=== PATIENT | female | born 1995 | race Caucasian/White ===

== ENCOUNTER 2017-07-01 08:00 | Outpatient (CLI) | payer MEDICAID ==
[2017-07-01 18:28] LABS: BILIRUBIN,URINE NEGATIVE (NEGATIVE)
[2017-07-01 18:30] LABS: UA w/ MICROSCOPIC CHARGE YES
[2017-07-01 18:38] LABS: UR CULTURE IF IND NOT INDICATED; WBC,URINE >25 /HPF (0-5)
== END 2017-07-01 08:01 | disposition home or self-care (01) ==
LOC: LAB.R 08:00
PROVIDERS: ATTEND Nurse Practitioner Family
DX: N39.0 Urinary tract infection, site not specified (principal)
CPT/HCPCS: 81001; 81003; 87086

== ENCOUNTER 2017-08-04 01:22 | Emergency (ER) | payer MEDICAID ==
[2017-08-04 01:46] LABS: BILIRUBIN,URINE NEGATIVE (NEGATIVE)
[2017-08-04 01:47] LABS: UA w/ MICROSCOPIC CHARGE YES
[2017-08-04 01:49] LABS: BASOPHILS % (AUTO) 0.5 %; EOSINOPHILS # (AUTO) 0.4 10^3/uL (0.0-0.7); EOSINOPHILS % (AUTO) 3.9 %; HCT - HEMATOCRIT 40.4 % (37.0-47.0); HGB - HEMOGLOBIN 14.1 g/dL (12.0-16.0); LYMPHOCYTES # (AUTO) 2.9 10^3/uL (1.5-3.5); LYMPHOCYTES % (AUTO) 28.2 %; MEAN CORPUSCULAR HEMOGLOBIN 31.2 pg (27.0-31.0); MEAN CORPUSCULAR HGB CONC 35.1 g/dL (32.0-36.0); MEAN PLATELET VOLUME 7.6 fL (7.9-10.8); MONOCYTES # (AUTO) 0.8 10^3/uL (0.0-1.0); MONOCYTES % (AUTO) 7.7 %; NEUTROPHILS # (AUTO) 6.2 10^3/uL (1.5-6.6); NEUTROPHILS % (AUTO) 59.7 %; RED BLOOD COUNT 4.53 10^6/uL (4.20-5.40); UNCORRECTED WHITE BLOOD COUNT 10.4 x10^3/uL; WHITE BLOOD COUNT 10.4 x10^3/uL (4.8-10.8)
--- NOTE | 2017-08-04 01:50 | ED Physician Documentation ---
PD HPI ABD PAIN - Stated complaint Stated Complaint: ABDOMINAL PAIN,VOMITING - Chief complaint Chief Complaint: Abd Pain - History obtained from History obtained from: Patient - History of Present Illness Timing - onset: How many hours ago (5) Timing - details: Still present Quality: Pain Location: RUQ, Epigastric Worsened by: Eating Associated symptoms: Nausea, Vomiting. No: Fever, Diarrhea, Dysuria - Additional information Additional information: The patient is a 22-year-old female who presents with epigastric/right upper quadrant abdominal pain radiating to her back. Her pain started gradually about 5 hours prior to arrival, and has become progressively worse. It is worse with eating. She most recently ate prime rib and potatoes. She has had associated nausea with vomiting 2. She denies fever, diarrhea, or dysuria. She denies chest pain, cough, or shortness of breath. She reports history of peptic ulcer disease that was diagnosed 2 years ago and was treated with omeprazole. She was seen here about 1 year ago with similar symptoms, and no definitive diagnosis was made at that time. Review of Systems Constitutional: denies: Fever Nose: denies: Congestion Throat: denies: Sore throat Cardiac: denies: Chest pain / pressure Respiratory: denies: Dyspnea, Cough GI: reports: Abdominal Pain, Nausea, Vomiting. 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 : None HEENT: None Psych: Anxiety, Bipolar disorder Musculoskeletal: None Derm: None - Past Surgical History Past Surgical History: No - Present Medications Home Medications: Ambulatory Orders Medication Instructions Recorded Confirmed Duloxetine HCl [Cymbalta] 120 mg PO DAILY 03/01/16 08/04/17 Ferrous Sulfate 325 mg PO DAILY #20 tablet 06/12/16 08/04/17 Topiramate [Topamax] 50 mg PO BID 06/12/16 08/04/17 HYDROcod/ACETAM 5/325 [Vicodin 1 - 2 ea PO Q6H PRN #20 tablet 08/04/17 5/325] Promethazine [Phenergan] 25 - 50 mg PO Q6H PRN #10 tab 08/04/17 - Allergies Allergies/Adverse Reactions: Allergies Allergy/AdvReac Type Severity Reaction Status Date / Time Penicillins Allergy Unknown Verified 06/12/16 17:43 NSAIDS (Non-Steroidal AdvReac Unknown Verified 06/12/16 17:46 Anti-Inflamma - Social History Does the pt smoke?: No Smoking Status: Never smoker Does the pt drink ETOH?: No Does the pt have substance abuse?: No - Immunizations Immunizations are current?: Yes - POLST Patient has POLST: No POLST Status: Full Code PD ED PE NORMAL - Vitals Vital signs reviewed: Yes (normal) - General General: Alert and oriented X 3, Well developed/nourished, Other (Overweight) - HEENT HEENT: Atraumatic, Moist mucous membranes, Pharynx benign - Neck Neck: Supple, no meningeal sign, No adenopathy, No JVD - Cardiac Cardiac: RRR, No murmur - Respiratory Respiratory: No respiratory distress, Clear bilaterally - Abdomen Abdomen: Normal bowel sounds, Soft, No organomegaly, Other (Tender to palpation in the right upper quadrant, with positive Encinas sign. Less tender in the epigastric region.) - Back Back: No CVA TTP - Derm Derm: No rash - Extremities Extremities: No edema, No calf tenderness / cord - Neuro Neuro: Alert and oriented X 3, No motor deficit, Normal speech Results - Vitals Vitals: Vital Signs - 24 hr 08/04/17 08/04/17 08/04/17 01:27 03:25 04:05 Temperature 36 C L 36.4 C L 36.9 C Heart Rate 73 71 80 Respiratory 18 18 15 Rate Blood Pressure 123/69 110/62 121/68 O2 Saturation 100 100 99 Oxygen O2 Source Room air - Labs Labs: Laboratory Tests 08/04/17 08/04/17 08/04/17 01:35 01:45 01:45 WBC 10.4 RBC 4.53 Hgb 14.1 Hct 40.4 MCV 89.0 MCH 31.2 H MCHC 35.1 RDW 13.0 Plt Count 192 MPV 7.6 L Neut # 6.2 Lymph # 2.9 [place] # 0.8 Eos # 0.4 Baso # 0.0 Absolute Nucleated RBC 0.01 Nucleated RBC % 0.0 Sodium 137 Potassium 4.0 Chloride 102 Carbon Dioxide 26 Anion Gap 9.0 BUN 15 Creatinine 0.6 Estimated GFR (MDRD) 123 Glucose 113 H Calcium 9.4 Total Bilirubin 0.3 AST 15 ALT 18 Alkaline Phosphatase 55 Total Protein 7.1 Albumin 4.3 Globulin 2.8 Albumin/Globulin Ratio 1.5 Lipase 25 Urine Color YELLOW Urine Clarity HAZY Urine pH 7.0 Ur Specific [place] 1.020 Urine Protein NEGATIVE Urine Glucose (UA) NEGATIVE Urine Ketones NEGATIVE Urine Occult Blood NEGATIVE Urine Nitrite NEGATIVE Urine Bilirubin NEGATIVE Urine Urobilinogen 0.2 (NORMAL) Ur Leukocyte Esterase NEGATIVE Urine RBC None Seen Urine WBC 0-3 Ur Squamous Epith Cells MANY Squamous H Urine Bacteria None Seen Ur Microscopic Review INDICATED - Rads (name of study) RUQ U/S Radiology: Prelim report reviewed, EMP read contemporaneously, See rad report ( Stones and sludge in the gallbladder with borderline wall thickening and positive sonographic Encinas sign. There may be cholecystitis. No biliary dilatation seen.) PD MEDICAL DECISION MAKING - ED course Complexity details: reviewed old records, reviewed results, re-evaluated patient , considered differential, d/w patient ED course: The patient's presentation is most consistent with biliary colic. Right upper quadrant ultrasound reveals cholelithiasis. CBC and chemistry panel are unremarkable. Her presentation does not suggest pancreatitis, and I doubt acute gastritis. Treatment in the emergency department included administration of normal saline 1 L IV, ketorolac 30 mg IV, ondansetron 4 mg IV, and hydromorphone 1 mg IV 2. The patient's symptoms completely resolved with the above treatment. On repeat examination her abdomen is benign. I discussed with her the diagnosis, potentially exacerbating factors, outpatient follow-up, including referral to general surgery, as well as potentially worrisome signs or symptoms that should prompt reevaluation in the emergency department. She is being discharged with prescriptions for Phenergan and for Vicodin, 20 tablets. Departure - Departure Disposition: 01 Home, Self Care Clinical Impression: Biliary colic Condition: Stable Instructions: ED Gallstone W Biliary Colic Follow-Up: Samina Hyatt ARNP [Primary Care Provider] - [facility] [Provider Group] Prescriptions: HYDROcod/ACETAM 5/325 [Vicodin 5/325] 1 - 2 ea PO Q6H PRN #20 tablet PRN Reason: Pain Promethazine [Phenergan] 25 - 50 mg PO Q6H PRN #10 tab PRN Reason: Nausea / Vomiting Comments: Avoid eating greasy or fatty foods, such as meat, cheeses, or pizza. You can use Vicodin as prescribed he needed for pain. You can use Phenergan as prescribed if needed for nausea. Follow-up with general surgery. Call for next available appointment. Return to the emergency department if you develop increasing abdominal pain, persistent vomiting, fever, or otherwise worsening symptoms. Discharge Date/Time: 08/04/17 04:05
[2017-08-04] MEDS: KETOROLAC 60 MG/2 ML VIAL IVP STA (01:55)
[2017-08-04] MEDS: ONDANSETRON 4 MG/2 ML VIAL IVP STA (01:56)
[2017-08-04] MEDS: SODIUM CHLORIDE 0.9% 1,000 ML IV ONE (01:56)
[2017-08-04 01:57] LABS: WBC,URINE 0-3 /HPF (0-5)
[2017-08-04] MEDS: HYDROmorphone 0.5 MG/0.5 ML SYRINGE IVP SCH (01:57)
[2017-08-04] MEDS ORDERED: HYDROmorphone 1 MG/ML SYRINGE ONE ×2 (01:57→03:45)
[2017-08-04] MEDS ORDERED: KETOROLAC 30 MG/ML VIAL ONE (01:58)
[2017-08-04] MEDS ORDERED: ONDANSETRON 4 MG/2 ML VIAL ONE (01:58)
[2017-08-04] MEDS ORDERED: SODIUM CHLORIDE FLUSH 0.9% 10 ML SYRINGE IVP ONE (01:58)
[2017-08-04 02:01] LABS: ALBUMIN/GLOBULIN RATIO 1.5 (1.0-2.2); BILIRUBIN,TOTAL 0.3 mg/dL (0.2-1.0); CALCIUM 9.4 mg/dL (8.5-10.3); CREATININE 0.6 mg/dL (0.4-1.0); TOTAL PROTEIN 7.1 g/dL (6.7-8.2)
--- NOTE | 2017-08-04 02:52 | Ultrasound Preliminary Report ---
Exam: US ABDOMEN LIMITED IMPRESSION: 1. Stones and sludge in the gallbladder with borderline wall thickening and positive sonographic Murp hy sign. There may be cholecystitis. 2. No biliary dilatation seen. [facility] SITE ID: [id number]
--- NOTE | 2017-08-04 02:55 | Ultrasound Report ---
EXAM: ABDOMEN ULTRASOUND LIMITED, RUQ EXAM DATE: 08/04/2017 02:33 AM. CLINICAL HISTORY: Right upper quadrant pain. COMPARISON: None. TECHNIQUE: Real-time scanning was performed with static images obtained. FINDINGS: Liver: No focal lesion identified. 16.5 cm. Main portal vein flow: Hepatopetal. Gallbladder: Sludge in the gallbladder. Small mobile stones. Borderline wall thickening at 3.2 mm. Fo zara tenderness over the gallbladder. Biliary System: CBD measures 4 mm. No intrahepatic or extrahepatic ductal dilatation. Other: Right kidney measures 11.3 cm and appears normal. Visualized portions of the pancreas appear n ormal. IMPRESSION: 1. Stones and sludge in the gallbladder with borderline wall thickening and positive sonographic Murp hy sign. There may be cholecystitis. 2. No biliary dilatation seen. [facility] Referring Provider Line: [phone] SITE ID: [id number]
[2017-08-04] MEDS: HYDROmorphone 0.5 MG/0.5 ML SYRINGE IVP ONE (03:43)
[2017-08-04 04:08] VITALS: BP 121/68
== END 2017-08-04 04:05 | disposition home or self-care (01) ==
LOC: ED 01:22
DX: K80.50 Calculus of bile duct without cholangitis or cholecystitis without obstruction (principal)
CPT/HCPCS: 36415; 76705; 80053; 81001; 81003; 83690; 85025; 96361; 96374; 96375; 96376; 99283; 99284

== ENCOUNTER 2018-03-14 18:11 | Emergency (ER) | payer MEDICAID ==
[2018-03-14 18:39] LABS: BASOPHILS % (AUTO) 0.3 %; EOSINOPHILS # (AUTO) 0.1 10^3/uL (0.0-0.7); EOSINOPHILS % (AUTO) 0.9 %; HGB - HEMOGLOBIN 14.3 g/dL (12.0-16.0); LYMPHOCYTES # (AUTO) 1.3 10^3/uL (1.5-3.5); LYMPHOCYTES % (AUTO) 15.8 %; MEAN CORPUSCULAR HEMOGLOBIN 30.9 pg (27.0-31.0); MEAN CORPUSCULAR HGB CONC 35.5 g/dL (32.0-36.0); MEAN PLATELET VOLUME 7.5 fL (7.9-10.8); MONOCYTES # (AUTO) 0.9 10^3/uL (0.0-1.0); MONOCYTES % (AUTO) 11.7 %; NEUTROPHILS # (AUTO) 5.8 10^3/uL (1.5-6.6); NEUTROPHILS % (AUTO) 71.3 %; PLT - PLATELET COUNT 209 10^3/uL (130-450); RED BLOOD COUNT 4.62 10^6/uL (4.20-5.40); RED CELL DISTRIBUTION WIDTH 12.3 % (12.0-15.0); WHITE BLOOD COUNT 8.1 x10^3/uL (4.8-10.8)
[2018-03-14 18:41] LABS: BILIRUBIN,URINE NEGATIVE (NEGATIVE); GLUCOSE, URINE (UA) NEGATIVE (NEGATIVE); KETONES,URINE (UA) NEGATIVE (NEGATIVE); LEUKOCYTE ESTERASE, URINE NEGATIVE (NEGATIVE); NITRITE,URINE NEGATIVE (NEGATIVE); OCCULT BLOOD,URINE NEGATIVE (NEGATIVE); PROTEIN,URINE NEGATIVE (NEGATIVE); UROBILINOGEN,URINE 0.2 (NORMAL) E.U./dL (NORMAL)
[2018-03-14 18:46] LABS: CLARITY,URINE CLEAR (CLEAR); HCG UR QUAL NEGATIVE
[2018-03-14 18:54] LABS: ALBUMIN 3.7 g/dL (3.2-5.5); ALBUMIN/GLOBULIN RATIO 1.1 (1.0-2.2); BILIRUBIN,TOTAL 0.4 mg/dL (0.2-1.0); CALCIUM 9.5 mg/dL (8.5-10.3); CREATININE 0.6 mg/dL (0.4-1.0); TOTAL PROTEIN 7.1 g/dL (6.7-8.2)
[2018-03-14] MEDS ORDERED: MORPHINE 10 MG/ML VIAL IVP STA (19:41)
[2018-03-14] MEDS ORDERED: ONDANSETRON 4 MG/2 ML VIAL IVP STA (19:44)
[2018-03-14] MEDS ORDERED: SODIUM CHLORIDE 0.9% 1,000 ML IV ONE (19:44)
--- NOTE | 2018-03-14 19:47 | ED Physician Documentation ---
PD HPI ABD PAIN - Stated complaint Stated Complaint: FEVER/V/D - Chief complaint Chief Complaint: Abd Pain - History obtained from History obtained from: Patient, Family (mother) - History of Present Illness Timing - onset: How many days ago (4) Timing - duration: Days (4) Timing - details: Gradual onset Quality: Cramping, Aching, Pain Location: All over / everywhere Improved by: Laying still Worsened by: Eating Associated symptoms: Fever (102.5), Nausea, Vomiting, Diarrhea. No: Melena, Hematochezia, Dysuria, Hematuria Recently seen: Not recently seen - Additional information Additional information: states diarrhea and fever x 4 days. + cramping. constant pain. States started vomiting today. States diarrhea is approx q15 mins. Review of Systems Constitutional: reports: Fever. 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 HEENT: None Psych: Anxiety, Bipolar disorder Musculoskeletal: None Derm: None - Past Surgical History Past Surgical History: Yes General: Cholecystectomy - Present Medications Home Medications: Ambulatory Orders Medication Instructions Recorded Confirmed Duloxetine HCl [Cymbalta] 120 mg PO DAILY 03/01/16 08/14/17 Ferrous Sulfate 325 mg PO DAILY #20 tablet 06/12/16 08/14/17 Topiramate [Topamax] 50 mg PO BID 06/12/16 08/14/17 Omeprazole [PriLOSEC] 20 mg PO QDAC 08/12/17 08/14/17 Acetaminophen 1,000 mg PO Q6H PRN #30 tablet 08/13/17 08/14/17 Promethazine [Phenergan] 25 - 50 mg PO Q6H PRN 08/15/17 08/15/17 SUMAtriptan [Imitrex] 25 mg PO DAILY PRN 08/15/17 08/15/17 oxyCODONE [Roxicodone] 5 - 10 mg PO Q6H PRN #15 tablet 08/15/17 Ciprofloxacin HCl [Cipro] 500 mg PO BID #20 tablet 03/14/18 Hydrocodone/Acetaminophen 1 - 2 each PO Q6H PRN #14 tablet 03/14/18 [Hydrocodon-Acetaminophen 5-325] Hyoscyamine Sulfate [Levsin-Sl] 0.125 mg SL Q4H PRN #20 tab.subl 03/14/18 Metronidazole [Flagyl] 500 mg PO BID #20 tablet 03/14/18 Promethazine [Phenergan] 25 mg PO Q6H PRN #10 tab 03/14/18 - Allergies Allergies/Adverse Reactions: Allergies Allergy/AdvReac Type Severity Reaction Status Date / Time Penicillins Allergy Unknown Unknown Verified 08/14/17 14:56 NSAIDS (Non-Steroidal AdvReac Mild Cramps Verified 08/14/17 14:56 Anti-Inflamma - Social History Does the pt smoke?: No Smoking Status: Never smoker Does the pt drink ETOH?: No Does the pt have substance abuse?: No - Immunizations Immunizations are current?: Yes - POLST Patient has POLST: No POLST Status: Full Code PD ED PE NORMAL - Vitals Vital signs reviewed: Yes - General General: Alert and oriented X 3, No acute distress - HEENT HEENT: Moist mucous membranes - Neck Neck: Supple, no meningeal sign - Cardiac Cardiac: RRR, Strong equal pulses - Respiratory Respiratory: No respiratory distress, Clear bilaterally - Abdomen Abdomen: Soft, Non tender, Non distended - Back Back: No spinal TTP - Derm Derm: Warm and dry - Neuro Neuro: Alert and oriented X 3 - Psych Psych: Normal mood, Normal affect Results - Vitals Vitals: Vital Signs - 24 hr 03/14/18 03/14/18 03/14/18 18:18 19:53 20:08 Temperature 36.9 C Heart Rate 92 79 86 Respiratory 18 15 16 Rate Blood Pressure 113/70 114/67 113/72 O2 Saturation 100 100 100 03/14/18 03/14/18 21:28 22:25 Temperature 36.9 C Heart Rate 83 83 Respiratory 16 16 Rate Blood Pressure 119/72 112/76 O2 Saturation 100 100 Oxygen O2 Source Room air - Labs Labs: Microbiology 03/14/18 20:17 Clostridium difficile (PCR) - Final Stool 03/14/18 20:17 Campylobacter Antigen Assay - Final Stool Laboratory Tests 03/14/18 03/14/18 03/14/18 18:30 18:30 18:30 WBC 8.1 RBC 4.62 Hgb 14.3 Hct 40.2 MCV 87.0 MCH 30.9 MCHC 35.5 RDW 12.3 Plt Count 209 MPV 7.5 L Neut # 5.8 Lymph # 1.3 L [place] # 0.9 Eos # 0.1 Baso # 0.0 Absolute Nucleated RBC 0.02 Nucleated RBC % 0.2 Sodium 132 L Potassium 2.8 L Chloride 97 L Carbon Dioxide 26 Anion Gap 9.0 BUN 11 Creatinine 0.6 Estimated GFR (MDRD) 123 Glucose 93 Calcium 9.5 Total Bilirubin 0.4 AST 22 ALT 20 Alkaline Phosphatase 66 Total Protein 7.1 Albumin 3.7 Globulin 3.4 Albumin/Globulin Ratio 1.1 Lipase 18 L Urine Color YELLOW Urine Clarity CLEAR Urine pH 6.0 Ur Specific [place] <=1.005 Urine Protein NEGATIVE Urine Glucose (UA) NEGATIVE Urine Ketones NEGATIVE Urine Occult Blood NEGATIVE Urine Nitrite NEGATIVE Urine Bilirubin NEGATIVE Urine Urobilinogen 0.2 (NORMAL) Ur Leukocyte Esterase NEGATIVE Ur Microscopic Review NOT INDICATED Urine Culture Comments NOT INDICATED Urine HCG, Qual 03/14/18 18:30 WBC RBC Hgb Hct MCV MCH MCHC RDW Plt Count MPV Neut # Lymph # [place] # Eos # Baso # Absolute Nucleated RBC Nucleated RBC % Sodium Potassium Chloride Carbon Dioxide Anion Gap BUN Creatinine Estimated GFR (MDRD) Glucose Calcium Total Bilirubin AST ALT Alkaline Phosphatase Total Protein Albumin Globulin Albumin/Globulin Ratio Lipase Urine Color Urine Clarity Urine pH Ur Specific [place] <=1.005 Urine Protein Urine Glucose (UA) Urine Ketones Urine Occult Blood Urine Nitrite Urine Bilirubin Urine Urobilinogen Ur Leukocyte Esterase Ur Microscopic Review Urine Culture Comments Urine HCG, Qual NEGATIVE - Rads (name of study) CT abd/pelvis Radiology: Prelim report reviewed, EMP read contemporaneously, See rad report ( Mild colitis involving the descending and sigmoid colon. No associated abscess , obstruction or perforation.) PD MEDICAL DECISION MAKING - ED course Complexity details: reviewed results, re-evaluated patient, considered differential, d/w patient ED course: Patient is a 22-year-old female who presents to the emergency department with colitis. No evidence of ischemic colitis. Does not have a history of Crohn's or ulcerative colitis. We will trial her on antibiotics and see how she progresses. Pain well controlled. She is well-appearing, nontoxic. If she fails to improve, would consider adding steroids to see if this improves her symptoms. Patient will follow-up closely with her PCP for further care. Patient and family counseled regarding signs and symptoms for which I believe and urgent re-evaluation would be necessary. Patient with good understanding of and agreement to plan and is comfortable going home at this time This document was made in part using voice recognition software. While efforts are made to proofread this document, sound alike and grammatical errors may occur. Departure - Departure Disposition: 01 Home, Self Care Clinical Impression: Colitis Condition: Good Instructions: ED Gastroenteritis Bacterial Follow-Up: Samina Hyatt ARNP [Primary Care Provider] - Within 1 week Prescriptions: Ciprofloxacin HCl [Cipro] 500 mg PO BID #20 tablet Hydrocodone/Acetaminophen [Hydrocodon-Acetaminophen 5-325] 1 - 2 each PO Q6H PRN #14 tablet PRN Reason: pain Hyoscyamine Sulfate [Levsin-Sl] 0.125 mg SL Q4H PRN #20 tab.subl PRN Reason: Abdominal Pain Metronidazole [Flagyl] 500 mg PO BID #20 tablet Promethazine [Phenergan] 25 mg PO Q6H PRN #10 tab PRN Reason: Nausea / Vomiting Comments: Drink plenty of fluids and rest. Return if you worsen. Take all antibiotics until gone. Do not drink alcohol or drive while on narcotic pain medicine. Note that many narcotic pain relievers also contain tylenol/acetaminophen. Please ensure that your total dose of acetaminophen from all sources does not exceed 3 grams (3000mg) per day. You may constipated on this medication, take a stool softener such as "Colace" twice a day while you are on it. Also recommend a [id number] laxative such as senna or MiraLAX any day that you do not have a bowel movement. If you received narcotic pain medication in the emergency department, do not drive or operate machinery for the next 24 hours. Discharge Date/Time: 03/14/18 22:28
[2018-03-14] MEDS ORDERED: POTASSIUM BICARB 25 MEQ TABLET PO STA (19:51)
[2018-03-14] MEDS ORDERED: IOPAMIDOL-300 100 ML VIAL ONE (20:57)
[2018-03-14] MEDS ORDERED: IOPAMIDOL-300 100 ML VIAL IVP ONE (20:59)
[2018-03-14] MEDS ORDERED: HYOSCYAMINE SL 0.125 MG TABLET SL SCH (21:00)
--- NOTE | 2018-03-14 21:46 | CT Report ---
EXAM: CT ABDOMEN AND PELVIS EXAM DATE: 03/14/2018 09:05 PM. CLINICAL HISTORY: Lower abd pain, diffuse. COMPARISONS: 08/14/2017 CT. TECHNIQUE: Routine helical CT imaging was performed through the abdomen and pelvis. IV contrast: 100M L ISOVUE 300. Enteric contrast: No. Reconstructions: Coronal and sagittal. In accordance with CT protocol optimization, one or more of the following dose reduction techniques w ere utilized for this exam: automated exposure control, adjustment of mA and/or KV based on patient s ize, or use of iterative reconstructive technique. FINDINGS: Lung Bases: Unremarkable. Liver: Normal. No masses. Gallbladder/Bile Ducts: Unremarkable. Spleen: Normal. Pancreas: Normal. Adrenal Glands: Normal. Kidneys: Normal. No masses or hydronephrosis. Peritoneal Cavity/Bowel: There is mild circumferential mural thickening of the descending and sigmoid colon. No diverticulosis. No associated abscess or fluid collections. There is mild pericolonic stra nding. No small bowel obstruction. The appendix is well visualized and normal. Pelvic Organs: Normal. The bladder and visualized pelvic organs are within normal limits. Vasculature: No aneurysms or other significant abnormality. Bones: There is an old right L3 transverse process fracture. No acute bony abnormalities. Other: None. IMPRESSION: 1. Mild colitis involving the descending and sigmoid colon. No associated abscess, obstruction or per foration. [facility] Referring Provider Line: [phone] SITE ID: [id number]
[2018-03-14 22:28] VITALS: BP 112/76
== END 2018-03-14 22:28 | disposition home or self-care (01) ==
LOC: ED 18:11
DX: K52.9 Noninfective gastroenteritis and colitis, unspecified (principal)
CPT/HCPCS: 36415; 74177; 80053; 81003; 81025; 83690; 85025; 87045; 87046; 87077; 87493; 96361; 96374; 96375; 99283; 99284; A9270; Q9967; 81001; 87086; 87181

== ENCOUNTER 2018-04-27 16:43 | Outpatient (CLI) | payer MEDICAID | END 2018-04-27 16:44 | disposition critical access hospital (66) | LOC: EMS 16:43 | PROVIDERS: ATTEND Surgery | DX: T43.211A Poisoning by selective serotonin and norepinephrine reuptake inhibitors, accidental (unintentional), initial encounter (principal); Z72.89 Other problems related to lifestyle; R55 Syncope and collapse | CPT/HCPCS: A0425; A0427 ==

== ENCOUNTER 2018-04-27 17:14 | Emergency (ER) | payer MEDICAID ==
--- NOTE | 2018-04-27 17:30 | ED Physician Documentation ---
PD HPI MHE - Stated complaint Stated Complaint: MHE - Chief complaint Chief Complaint: MHE - History obtained from History obtained from: Patient, EMS - History of Present Illness Primary symptom: Self harm - OD, Depression Timing - onset: Today Contributing factors: Family Similar symptoms before: Has not had sx before Recently seen: Not recently seen - Additional information Additional information: Patient is a 23 year old female presenting to the emergency department for suicidal ideation, alcohol intoxication and overdose. Patient states that her grandmother is in the icu and she got really upset today. Patient drank "too much" and took between 5-10 gabapentin. 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 : None HEENT: None Psych: Anxiety, Bipolar disorder Musculoskeletal: None Derm: None - Past Surgical History Past Surgical History: Yes General: Cholecystectomy - Present Medications Home Medications: Ambulatory Orders Medication Instructions Recorded Confirmed Duloxetine HCl [Cymbalta] 120 mg PO DAILY 03/01/16 08/14/17 Ferrous Sulfate 325 mg PO DAILY #20 tablet 06/12/16 08/14/17 Topiramate [Topamax] 50 mg PO BID 06/12/16 08/14/17 Omeprazole [PriLOSEC] 20 mg PO QDAC 08/12/17 08/14/17 Acetaminophen 1,000 mg PO Q6H PRN #30 tablet 08/13/17 08/14/17 Promethazine [Phenergan] 25 - 50 mg PO Q6H PRN 08/15/17 08/15/17 SUMAtriptan [Imitrex] 25 mg PO DAILY PRN 08/15/17 08/15/17 oxyCODONE [Roxicodone] 5 - 10 mg PO Q6H PRN #15 tablet 08/15/17 Ciprofloxacin HCl [Cipro] 500 mg PO BID #20 tablet 03/14/18 Hydrocodone/Acetaminophen 1 - 2 each PO Q6H PRN #14 tablet 03/14/18 [Hydrocodon-Acetaminophen 5-325] Hyoscyamine Sulfate [Levsin-Sl] 0.125 mg SL Q4H PRN #20 tab.subl 03/14/18 Metronidazole [Flagyl] 500 mg PO BID #20 tablet 05/26/18 Promethazine [Phenergan] 25 mg PO Q6H PRN #10 tab 03/14/18 - Allergies Allergies/Adverse Reactions: Allergies Allergy/AdvReac Type Severity Reaction Status Date / Time Penicillins Allergy Unknown Unknown Verified 08/14/17 14:56 NSAIDS (Non-Steroidal AdvReac Mild Cramps Verified 08/14/17 14:56 Anti-Inflamma - Social History Does the pt smoke?: No Smoking Status: Never smoker Does the pt drink ETOH?: No Does the pt have substance abuse?: No - Immunizations Immunizations are current?: Yes - POLST Patient has POLST: No POLST Status: Full Code PD ED PE NORMAL - HEENT HEENT: Atraumatic, PERRL - Cardiac Cardiac: RRR, No murmur - Respiratory Respiratory: No respiratory distress - Derm Derm: Normal color, Warm and dry - Extremities Extremities: No deformity - Neuro Neuro: No motor deficit, Normal speech Eye Opening: Spontaneous Motor: Obeys Commands Verbal: Oriented GCS Score: 15 PD ED PE EXPANDED - Psych Psych: Depressed, Tearful Results - Vitals Vitals: Vital Signs - 24 hr 04/27/18 04/27/18 04/27/18 17:15 17:38 18:53 Temperature 36.4 C L 36.5 C Heart Rate 81 80 80 Respiratory 20 18 16 Rate Blood Pressure 161/90 H 112/85 H 99/57 L O2 Saturation 96 100 96 04/27/18 04/27/18 20:29 22:04 Temperature 36.9 C 36.5 C Heart Rate 91 85 Respiratory 16 18 Rate Blood Pressure 111/57 L 123/86 H O2 Saturation 96 97 Oxygen O2 Source Room air - Labs Labs: Laboratory Tests 04/27/18 04/27/18 04/27/18 17:34 17:34 17:40 WBC 7.5 RBC 4.75 Hgb 14.4 Hct 42.9 MCV 90.2 MCH 30.4 MCHC 33.7 RDW 13.4 Plt Count 220 MPV 7.4 L Neut # (Auto) 3.6 Lymph # (Auto) 3.1 Glynn # (Auto) 0.5 Eos # (Auto) 0.3 Baso # (Auto) 0.1 Absolute Nucleated RBC 0.01 Nucleated RBC % 0.1 Sodium Potassium Chloride Carbon Dioxide Anion Gap BUN Creatinine Estimated GFR (MDRD) Glucose Calcium Total Bilirubin AST ALT Alkaline Phosphatase Total Protein Albumin Globulin Albumin/Globulin Ratio Lipase Urine Color COLORLESS Urine Clarity CLEAR Urine pH 6.0 Ur Specific [place] <=1.005 Urine Protein NEGATIVE Urine Glucose (UA) NEGATIVE Urine Ketones NEGATIVE Urine Occult Blood NEGATIVE Urine Nitrite NEGATIVE Urine Bilirubin NEGATIVE Urine Urobilinogen 0.2 (NORMAL) Ur Leukocyte Esterase NEGATIVE Ur Microscopic Review NOT INDICATED Urine Culture Comments NOT INDICATED Urine HCG, Qual NEGATIVE Salicylates Urine Opiates Screen NEGATIVE Ur Oxycodone Screen NEGATIVE Urine Methadone Screen NEGATIVE Ur Propoxyphene Screen NEGATIVE Acetaminophen Ur Barbiturates Screen NEGATIVE Ur Tricyclics Screen NEGATIVE Ur Phencyclidine Scrn NEGATIVE Ur Amphetamine Screen NEGATIVE U Methamphetamines Scrn NEGATIVE U Benzodiazepines Scrn NEGATIVE Urine Cocaine Screen NEGATIVE U Cannabinoids Screen NEGATIVE Ethyl Alcohol 04/27/18 17:40 WBC RBC Hgb Hct MCV MCH MCHC RDW Plt Count MPV Neut # (Auto) Lymph # (Auto) Glynn # (Auto) Eos # (Auto) Baso # (Auto) Absolute Nucleated RBC Nucleated RBC % Sodium 143 Potassium 3.4 L Chloride 109 Carbon Dioxide 24 Anion Gap 10.0 BUN 13 Creatinine 0.6 Estimated GFR (MDRD) 122 Glucose 94 Calcium 9.0 Total Bilirubin 0.5 AST 24 ALT 25 Alkaline Phosphatase 74 Total Protein 6.8 Albumin 3.9 Globulin 2.9 Albumin/Globulin Ratio 1.3 Lipase 20 L Urine Color Urine Clarity Urine pH Ur Specific [place] Urine Protein Urine Glucose (UA) Urine Ketones Urine Occult Blood Urine Nitrite Urine Bilirubin Urine Urobilinogen Ur Leukocyte Esterase Ur Microscopic Review Urine Culture Comments Urine HCG, Qual Salicylates < 6.0 Urine Opiates Screen Ur Oxycodone Screen Urine Methadone Screen Ur Propoxyphene Screen Acetaminophen < 10 L Ur Barbiturates Screen Ur Tricyclics Screen Ur Phencyclidine Scrn Ur Amphetamine Screen U Methamphetamines Scrn U Benzodiazepines Scrn Urine Cocaine Screen U Cannabinoids Screen Ethyl Alcohol 230.5 PD MEDICAL DECISION MAKING - ED course Complexity details: reviewed old records, reviewed results, re-evaluated patient , considered differential, d/w patient ED course: Patient was seen and examined at bedside. Labs were drawn and urine was collected. patient's etoh was elevated at 230. Patient was observed in the emergency department for almost 5 hours. Upon re-evaluation patient was awake alert and oriented. Patient was able to attend to conversation and ambulate without difficulty. Patient stated that she did not actually want to . she just got upset. 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 Patient was able to contract to safety and was stable for discharge with outpatient follow up. - Sepsis Event Vital Signs: Vital Signs - 24 hr 04/27/18 04/27/18 04/27/18 17:15 17:38 18:53 Temperature 36.4 C L 36.5 C Heart Rate 81 80 80 Respiratory 20 18 16 Rate Blood Pressure 161/90 H 112/85 H 99/57 L O2 Saturation 96 100 96 04/27/18 04/27/18 20:29 22:04 Temperature 36.9 C 36.5 C Heart Rate 91 85 Respiratory 16 18 Rate Blood Pressure 111/57 L 123/86 H O2 Saturation 96 97 Oxygen O2 Source Room air Departure - Departure Disposition: 01 Home, Self Care Clinical Impression: Alcoholic intoxication, Depression Condition: Good Instructions: ED Stress React Follow-Up: Samina Hyatt ARNP [Primary Care Provider] - Comments: it is important to refrain from excessive drinking as it can exacerbate depression and sadness. At any time you can call the crisis hotline at [phone]. You should return to the emergency department at any time if you are having thoughts of hurting yourself or hurting anyone else. Discharge Date/Time: 04/27/18 22:26
[2018-04-27 17:35] LABS: MUDS CUTOFF CONCENTRATIONS CUTOFF CONC BELOW:
[2018-04-27 17:44] LABS: BILIRUBIN,URINE NEGATIVE (NEGATIVE); GLUCOSE, URINE (UA) NEGATIVE (NEGATIVE); KETONES,URINE (UA) NEGATIVE (NEGATIVE); LEUKOCYTE ESTERASE, URINE NEGATIVE (NEGATIVE); NITRITE,URINE NEGATIVE (NEGATIVE); OCCULT BLOOD,URINE NEGATIVE (NEGATIVE); PROTEIN,URINE NEGATIVE (NEGATIVE); UROBILINOGEN,URINE 0.2 (NORMAL) E.U./dL (NORMAL)
[2018-04-27 17:45] LABS: BASOPHILS # (AUTO) 0.1 10^3/uL (0.0-0.1); BASOPHILS % (AUTO) 0.8 %; EOSINOPHILS # (AUTO) 0.3 10^3/uL (0.0-0.7); EOSINOPHILS % (AUTO) 3.7 %; HGB - HEMOGLOBIN 14.4 g/dL (12.0-16.0); LYMPHOCYTES # (AUTO) 3.1 10^3/uL (1.5-3.5); LYMPHOCYTES % (AUTO) 41.6 %; MEAN CORPUSCULAR HEMOGLOBIN 30.4 pg (27.0-31.0); MEAN CORPUSCULAR HGB CONC 33.7 g/dL (32.0-36.0); MEAN CORPUSCULAR VOLUME 90.2 fL (81.0-99.0); MEAN PLATELET VOLUME 7.4 fL (7.9-10.8); MONOCYTES # (AUTO) 0.5 10^3/uL (0.0-1.0); NEUTROPHILS # (AUTO) 3.6 10^3/uL (1.5-6.6); NEUTROPHILS % (AUTO) 47.9 %; PLT - PLATELET COUNT 220 10^3/uL (130-450); RED BLOOD COUNT 4.75 10^6/uL (4.20-5.40); RED CELL DISTRIBUTION WIDTH 13.4 % (12.0-15.0); WHITE BLOOD COUNT 7.5 x10^3/uL (4.8-10.8)
[2018-04-27 17:50] LABS: CLARITY,URINE CLEAR (CLEAR); HCG UR QUAL NEGATIVE
[2018-04-27 17:54] LABS: AMPHETAMINE SCREEN,URINE NEGATIVE (NEGATIVE); BENZODIAZEPINES SCREEN, URINE NEGATIVE (NEGATIVE); COCAINE SCREEN URINE NEGATIVE (NEGATIVE); METHADONE SCREEN, URINE NEGATIVE (NEGATIVE); METHAMPHETAMINES SCREEN, URINE NEGATIVE (NEGATIVE); OPIATE SCREEN, URINE NEGATIVE (NEGATIVE); OXYCODONE SCREEN, URINE NEGATIVE (NEGATIVE); PROPOXYPHENE SCREEN, URINE NEGATIVE (NEGATIVE); TRICYCLIC ANTIDEPRESSANT,URINE NEGATIVE (NEGATIVE)
[2018-04-27 17:58] LABS: ALBUMIN 3.9 g/dL (3.2-5.5); ALBUMIN/GLOBULIN RATIO 1.3 (1.0-2.2); ALKALINE PHOSPHATASE 74 IU/L (42-121); ALT ALANINE AMINOTRANSFERASE 25 IU/L (10-60); AST ASPARTATE AMINOTRANSFERASE 24 IU/L (10-42); BILIRUBIN,TOTAL 0.5 mg/dL (0.2-1.0); BUN - BLOOD UREA NITROGEN 13 mg/dL (6-20); CARBON DIOXIDE - CO2 24 mmol/L (21-32); CHLORIDE 109 mmol/L (101-111); CREATININE 0.6 mg/dL (0.4-1.0); GFR - MDRD 122 (>89); GLUCOSE 94 mg/dL (70-100); LIPASE 20 U/L (22-51); SALICYLATE < 6.0 mg/dL; SODIUM 143 mmol/L (135-145); TOTAL PROTEIN 6.8 g/dL (6.7-8.2)
[2018-04-27 18:19] LABS: ACETAMINOPHEN < 10 ug/mL (10-30)
[2018-04-27 22:05] VITALS: BP 123/86
== END 2018-04-27 22:26 | disposition home or self-care (01) ==
LOC: ED 17:14
DX: F10.129 Alcohol abuse with intoxication, unspecified (principal); Y90.7 Blood alcohol level of 200-239 mg/100 ml; F32.9 Major depressive disorder, single episode, unspecified
CPT/HCPCS: 36415; 80053; 80306; 80307; 80320; 80329; 81001; 81003; 81025; 83690; 85025; 87086; 99283; 99284

== ENCOUNTER 2019-02-26 08:00 | Outpatient (CLI) | payer MEDICAID | END 2019-02-26 23:59 | disposition home or self-care (01) | LOC: LAB.R 08:00 | PROVIDERS: ATTEND Physician Assistant Medical | DX: J02.9 Acute pharyngitis, unspecified (principal) | CPT/HCPCS: 87070 ==

== ENCOUNTER 2019-04-10 15:33 | Emergency (ER) | payer OTHER, MEDICAID ==
--- NOTE | 2019-04-10 15:46 | ED Physician Documentation ---
PD HPI LOWER EXT INJURY - Stated complaint Stated Complaint: LFT ANKLE INJ - Chief complaint Chief Complaint: Ext Problem - History obtained from History obtained from: Patient - History of Present Illness PD HPI LOW EXT INJURY LOCATION: Left (Came off a curb wrong and turned her left ankle. She is able to walk and bear weight. No other injuries. Declines pain medications. 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 : None HEENT: None Psych: Anxiety, Bipolar disorder Musculoskeletal: None Derm: None - Past Surgical History Past Surgical History: Yes General: Cholecystectomy - Present Medications Home Medications: Ambulatory Orders Medication Instructions Recorded Confirmed Duloxetine HCl [Cymbalta] 120 mg PO DAILY 03/01/16 08/14/17 Ferrous Sulfate 325 mg PO DAILY #20 tablet 06/12/16 08/14/17 Omeprazole [PriLOSEC] 20 mg PO QDAC 08/12/17 08/14/17 SUMAtriptan [Imitrex] 25 mg PO DAILY PRN 08/15/17 08/15/17 - Allergies Allergies/Adverse Reactions: Allergies Allergy/AdvReac Type Severity Reaction Status Date / Time Penicillins Allergy Unknown Unknown Verified 04/10/19 15:38 NSAIDS (Non-Steroidal AdvReac Mild Cramps Verified 04/10/19 15:38 Anti-Inflamma - Social History Does the pt smoke?: No Smoking Status: Never smoker Does the pt drink ETOH?: No Does the pt have substance abuse?: No - Immunizations Immunizations are current?: Yes - POLST Patient has POLST: No POLST Status: Full Code PD ED PE NORMAL - Vitals Vital signs reviewed: Yes - General General: Alert and oriented X 3, No acute distress - Extremities Extremities: Other (Mild tenderness over both malleoli and the ATFL on the left without foot or proximal fibular tenderness.) - Neuro Neuro: Alert and oriented X 3, Normal speech Results - Vitals Vitals: Vital Signs - 24 hr 04/10/19 15:35 Temperature 37.1 C Heart Rate 90 Respiratory 18 Rate Blood Pressure 119/87 H O2 Saturation 99 Oxygen O2 Source Room air - Rads (name of study) L ankle 3v Radiology: EMP read contemporaneously (NAD) Departure - Departure Disposition: 01 Home, Self Care Clinical Impression: Left ankle sprain Qualifiers: Encounter type: initial encounter Involved ligament of ankle: anterior talofibular ligament Qualified Code(s): S93.492A - Sprain of other ligament of left ankle, initial encounter Condition: Good Record reviewed to determine appropriate education?: Yes Health Concerns: Left ankle sprain vs fracture Plan of Treatment: gel foam/weight bearing as tolerated Care Goals: should get better in a few days Assessment: ankle sprain Instructions: ED Sprain Ankle W X Ray Comments: ibuprofen as needed for pain, elevate it. OK to walk as tolerated
--- NOTE | 2019-04-10 16:47 | XRAY Report ---
Reason: rolled ankle, pain with ambulation Procedure Date: 04/10/2019 Accession Number: [id number] / [id number] Procedure: XR - Ankle 3 View LT CPT Code: FULL RESULT: EXAM: LEFT ANKLE RADIOGRAPHY EXAM DATE: 04/10/2019 04:05 PM. CLINICAL HISTORY: Rolled ankle, pain with ambulation. COMPARISON: ANKLE 3 VIEW RT 10/10/2014 6:51 PM. TECHNIQUE: 3 views. FINDINGS: Bones: No acute fracture or dislocation. There is a well-corticated 6 mm ossicle at the tip of the lateral malleolus. Small calcaneal spur along the plantar surface near the plantar fascia attachment. Joints: The ankle mortise and talar dome are intact. No ankle joint effusion. Soft Tissues: There is some soft tissue swelling at the lateral malleolus. IMPRESSION: No acute fracture or dislocation visualized. RADIA
[2019-04-10 17:05] VITALS: BP 119/89
== END 2019-04-10 17:04 | disposition home or self-care (01) ==
LOC: ED 15:33
DX: S93.492A Sprain of other ligament of left ankle, initial encounter (principal); X50.1XXA Overexertion from prolonged static or awkward postures, initial encounter; Y93.89 Activity, other specified; Y92.480 Sidewalk as the place of occurrence of the external cause; Y99.0 Civilian activity done for income or pay
CPT/HCPCS: 1040M; 73610; 99282; 99283

== ENCOUNTER 2019-09-28 15:55 | Outpatient (CLI) | payer MEDICAID ==
--- NOTE | 2019-09-28 21:45 | Ultrasound Report ---
Reason: TEST POSITIVE Procedure Date: 09/28/2019 Accession Number: [id number] / [id number] Procedure: US - OB First Trimester CPT Code: Final Report FULL RESULT: EXAM: FIRST TRIMESTER OBSTETRIC ULTRASOUND (Less than 11 weeks) EXAM DATE: 09/28/2019 04:50 PM. CLINICAL HISTORY: Size and dates. LMP: 07/20/2019. COMPARISONS: None. TECHNIQUE: Transabdominal and transvaginal ultrasound examination with static image documentation. CLINICAL DATES: EGA 10 weeks 0 days with ROXANE 25 April 2020 based on LMP. ASSESSMENT: Gestational Sac: Single intrauterine. Mean gestational sac diameter: 38.3 mm = 9 weeks 1 day. Embryo: CRL (crown-rump length) 23.1 mm = 9 weeks 0 days. Cardiac activity: 168 beats per minute. Yolk sac: 5.7 mm. Amniotic fluid: Not accurately assessed at this gestational age. Early placenta: Not visible at this gestational age. Other: Small perigestational fluid collection measuring about 16 x 9 mm. MATERNAL STRUCTURES: Uterus: Anteverted. Unremarkable. Cervix: Closed. Right Ovary/Adnexa: The ovary measures 2.4 x 2.8 x 2.4 cm, volume 8.6 cc. Unremarkable. Corpus luteum measuring 2.0 x 2.2 x 2.0 cm. Left Ovary/Adnexa: The ovary measures 1.8 x 1.4 x 2.6 cm, volume 3.3 cc. Unremarkable. Free Fluid: None. Other: None. IMPRESSION: 1. Single viable intrauterine at EGA 9 weeks 0 days with ROXANE 05/02/2020 based on crown-rump length, which is borderline discordant with clinical dates. 2. Assigned dating is ROXANE 05/02/2020 based on crown-rump length. RADIA
--- NOTE | 2019-09-28 21:45 | Ultrasound Report ---
Reason: TEST POSITIVE Procedure Date: 09/28/2019 Accession Number: [id number] / [id number] Procedure: US - OB Transvaginal CPT Code: Preliminary Report FULL RESULT: See separate report.
== END 2019-09-28 15:56 | disposition home or self-care (01) ==
LOC: DI 15:55
PROVIDERS: ATTEND Nurse Practitioner Obstetrics & Gynecology
DX: Z32.01 Encounter for pregnancy test, result positive (principal)
CPT/HCPCS: 76801; 76817

== ENCOUNTER 2019-10-08 08:00 | Outpatient (CLI) | payer MEDICAID ==
[2019-10-08 18:32] LABS: MUDS CUTOFF CONCENTRATIONS CUTOFF CONC BELOW:
[2019-10-08 18:47] LABS: BILIRUBIN,URINE NEGATIVE (NEGATIVE); GLUCOSE, URINE (UA) NEGATIVE (NEGATIVE); KETONES,URINE (UA) NEGATIVE (NEGATIVE); LEUKOCYTE ESTERASE, URINE NEGATIVE (NEGATIVE); NITRITE,URINE NEGATIVE (NEGATIVE); OCCULT BLOOD,URINE NEGATIVE (NEGATIVE); PROTEIN,URINE NEGATIVE (NEGATIVE); UROBILINOGEN,URINE 0.2 (NORMAL) E.U./dL (NORMAL)
[2019-10-08 19:02] LABS: CLARITY,URINE CLEAR (CLEAR)
[2019-10-08 19:03] LABS: AMPHETAMINE SCREEN,URINE NEGATIVE (NEGATIVE); BENZODIAZEPINES SCREEN, URINE NEGATIVE (NEGATIVE); COCAINE SCREEN URINE NEGATIVE (NEGATIVE); METHADONE SCREEN, URINE NEGATIVE (NEGATIVE); METHAMPHETAMINES SCREEN, URINE NEGATIVE (NEGATIVE); OPIATE SCREEN, URINE NEGATIVE (NEGATIVE); OXYCODONE SCREEN, URINE NEGATIVE (NEGATIVE); PROPOXYPHENE SCREEN, URINE NEGATIVE (NEGATIVE); TRICYCLIC ANTIDEPRESSANT,URINE NEGATIVE (NEGATIVE)
[2019-10-08 19:11] LABS: BACTERIA,URINE Rare /HPF (None Seen); RBC,URINE 0-5 /HPF (0-5); SQUAMOUS EPITHELIAL CELL,UR MOD Squamous (<= Few)
== END 2019-10-08 23:59 | disposition home or self-care (01) ==
LOC: LAB.R 08:00
PROVIDERS: ATTEND Nurse Practitioner Obstetrics & Gynecology
DX: Z36.89 Encounter for other specified antenatal screening (principal)
CPT/HCPCS: 80306; 81001; 87086

== ENCOUNTER 2019-11-11 16:16 | Outpatient (CLI) | payer MEDICAID | END 2019-11-11 16:17 | disposition home or self-care (01) | LOC: LAB 16:16 | PROVIDERS: ATTEND Nurse Practitioner Obstetrics & Gynecology | DX: Z53.9 Procedure and treatment not carried out, unspecified reason (principal) ==

== ENCOUNTER 2019-11-11 16:30 | Outpatient (CLI) | payer MEDICAID ==
[2019-11-11 16:48] LABS: BASOPHILS % (AUTO) 0.2 %; EOSINOPHILS # (AUTO) 0.1 10^3/uL (0.0-0.7); EOSINOPHILS % (AUTO) 1.4 %; HGB - HEMOGLOBIN 10.9 g/dL (12.0-16.0); LYMPHOCYTES # (AUTO) 1.5 10^3/uL (1.5-3.5); LYMPHOCYTES % (AUTO) 26.5 %; MEAN CORPUSCULAR HEMOGLOBIN 29.6 pg (27.0-31.0); MEAN CORPUSCULAR HGB CONC 34.3 g/dL (32.0-36.0); MEAN CORPUSCULAR VOLUME 86.4 fL (81.0-99.0); MEAN PLATELET VOLUME 9.2 fL (7.9-10.8); MONOCYTES # (AUTO) 0.5 10^3/uL (0.0-1.0); MONOCYTES % (AUTO) 8.5 %; NEUTROPHILS # (AUTO) 3.6 10^3/uL (1.5-6.6); PLT - PLATELET COUNT 154 10^3/uL (130-450); RED BLOOD COUNT 3.68 10^6/uL (4.20-5.40); RED CELL DISTRIBUTION WIDTH 13.8 % (12.0-15.0); WHITE BLOOD COUNT 5.7 x10^3/uL (4.8-10.8)
[2019-11-12 10:24] LABS: HEPATITIS B SURFACE ANTIGEN NON-REACTIVE (NON-REACTIVE)
[2019-11-12 12:49] LABS: HIV AG/AB 4TH GEN NON-REACTIVE (NON-REACTIVE)
== END 2019-11-11 16:31 | disposition home or self-care (01) ==
LOC: LAB.R 16:30
PROVIDERS: ATTEND Nurse Practitioner Obstetrics & Gynecology
DX: Z36.89 Encounter for other specified antenatal screening (principal)
CPT/HCPCS: 36415; 81599; 85025; 86762; 86850; 86900; 86901; 87340; 87389; 87522

== ENCOUNTER 2019-12-10 14:53 | Outpatient (CLI) | payer MEDICAID ==
--- NOTE | 2019-12-12 05:06 | Ultrasound Report ---
Reason: ENCOUNTER FOR SCREENING Procedure Date: 12/10/2019 Accession Number: [id number] / [id number] Procedure: US - OB Detailed Eval CPT Code: Final Report FULL RESULT: EXAM: COMPLETE OBSTETRICAL ULTRASOUND EXAM DATE: 12/10/2019 04:50 PM. CLINICAL HISTORY: anatomic survey. COMPARISON: OB FIRST TRIMESTER 09/28/2019 4:13 PM. TECHNIQUE: Real-time sonographic evaluation of the fetus performed by the paint mixer machine. Multiple group sales representative static images were saved for review. DATING: Established EGA 20 weeks 3 days with ROXANE 04/25/2020 based on stated dates. EGA 20 weeks 3 days with ROXANE 04/25/2020 based on LMP. EGA 20 weeks 0 days with ROXANE 04/28/2020 based on the current ultrasound. GENERAL EVALUATION Encinas . Cardiac activity: 152 bpm. movement: Very active. Presentation: Variable. Placenta: Posterior position. No evidence for previa. Umbilical cord: 3 vessel cord. Central placental cord origin. Amniotic fluid: Subjectively normal. MVP 5.5 cm. BIOMETRY Bi-Parietal Diameter (BPD): 4.6 cm, 19 weeks 6 days Head Circumference (HC): 17.6 cm, 20 weeks 1 day Abdominal Circumference (AC): 15.8 cm, 21 weeks 0 days Femur Length (FL): 3.6 cm, 21 weeks 3 days Estimated Weight: 393 g, 77.2 percentile for 20 weeks 3 days. ANATOMY The choroid plexus, lateral ventricles, midline falx, cerebellum, coronal face, nose/lips, cardiac situs, LVOT, RVOT, stomach, heart, bladder, diaphragm, cord insertion, right lower extremity, and left lower extremity are unremarkable. There was limited visualization of cisterna magna, nasal bone, open hands, four-chamber heart, kidneys, cervical spine, thoracic spine, lumbar spine, sacral spine, right upper extremity, left upper extremity, right leg foot relationship, and left leg foot relationship. MATERNAL STRUCTURES Uterus: Unremarkable. Cervix: Long and closed. Right ovary/adnexa: Unremarkable. Left ovary/adnexa: Unremarkable. Free fluid: None. IMPRESSION: 1. Encinas live intrauterine with gestational age 20 weeks 3 days based on stated dates. 2. Estimated weight is within expected limits for assigned dating. 3. Incomplete anatomic survey as noted above. Images were degraded due to position, very active movement, and maternal body habitus. No anatomic abnormalities are detected at this time. RADIA
== END 2019-12-10 14:54 | disposition home or self-care (01) ==
LOC: DI 14:53
PROVIDERS: ATTEND Obstetrics & Gynecology
DX: Z36.89 Encounter for other specified antenatal screening (principal)
CPT/HCPCS: 76811

== ENCOUNTER 2019-12-31 15:15 | Outpatient (CLI) | payer MEDICAID ==
--- NOTE | 2020-01-03 05:19 | Ultrasound Report ---
Reason: SCREENING, COMPLETION OF FAS Procedure Date: 12/31/2019 Accession Number: [id number] / [id number] Procedure: US - OB F/U or Repeat CPT Code: Final Report FULL RESULT: EXAM: FOLLOW-UP OBSTETRICAL ULTRASOUND EXAM DATE: 12/31/2019 03:25 PM. CLINICAL HISTORY: SCREENING, COMPLETION OF FAS. COMPARISON: OB DETAILED EVAL 12/10/2019 3:10 PM. TECHNIQUE: Real-time sonographic evaluation of the fetus performed by the machine hostler. Multiple kiosk sales representative static images were saved for review. DATING: Established EGA 23 weeks 3 days with ROXANE 04/25/2020 based on LMP. EGA 22 weeks 3 days with ROXANE 05/02/2020 based on first ultrasound. EGA weeks/days with ROXANE 04/26/2020 based on the current ultrasound. GENERAL EVALUATION Encinas . Cardiac activity: 145 bpm. movement: Visualized. Presentation: Breech. Placenta: Posterior position. Amniotic fluid: Normal. MAYTE 17.9 cm. MVP 5.1 cm. BIOMETRY Bi-Parietal Diameter (BPD): 5.4 cm, 22 weeks 4 days Head Circumference (HC): 20.6 cm, 22 weeks 5 days Abdominal Circumference (AC): 19.2 cm, weeks/days Femur Length (FL): 4.3 cm, 24 weeks 0 days Estimated Weight: 625 g, 57.5 percentile for 23 weeks 3 days. ANATOMY Spine, four-chamber heart, cisterna magna, profile/nasal bone, kidneys, bilateral leg foot relationship, and bilateral upper extremities are unremarkable. MATERNAL STRUCTURES Cervix: 4.5 cm on transabdominal exam. IMPRESSION: 1. Encinas live intrauterine with gestational age 23 weeks 3 days based on LMP. 2. Estimated weight is within expected limits for assigned dating. 3. Normal interval growth compared to 12/10/2019. 4. Spine, four-chamber heart, cisterna magna, profile/nasal bone, kidneys, bilateral leg foot relationship, and bilateral upper extremities are unremarkable. RADIA
== END 2019-12-31 15:16 | disposition home or self-care (01) ==
LOC: DI 15:15
PROVIDERS: ATTEND Nurse Practitioner Obstetrics & Gynecology
DX: Z34.82 Encounter for supervision of other normal pregnancy, second trimester (principal)
CPT/HCPCS: 76816

== ENCOUNTER 2020-01-28 13:44 | Outpatient (CLI) | payer MEDICAID ==
[2020-01-28 16:49] LABS: MEAN CORPUSCULAR HEMOGLOBIN 29.2 pg (27.0-31.0); MEAN CORPUSCULAR HGB CONC 32.9 g/dL (32.0-36.0); MEAN CORPUSCULAR VOLUME 88.6 fL (81.0-99.0); MEAN PLATELET VOLUME 10.2 fL (7.9-10.8); RED BLOOD COUNT 3.43 10^6/uL (4.20-5.40); RED CELL DISTRIBUTION WIDTH 13.6 % (12.0-15.0); WHITE BLOOD COUNT 7.5 x10^3/uL (4.8-10.8)
[2020-01-28 17:13] LABS: % IRON SATURATION 10 % (20-50); IRON 43 ug/dL (28-170); TOTAL IRON BINDING CAPACITY 448 ug/dL (250-450); TRANSFERRIN 320 mg/dL (192-382)
== END 2020-01-28 23:59 | disposition home or self-care (01) ==
LOC: LAB.WCP 13:44
PROVIDERS: ATTEND Obstetrics & Gynecology
DX: Z36.89 Encounter for other specified antenatal screening (principal)
CPT/HCPCS: 36415; 82950; 83540; 84466; 85027; 86850

== ENCOUNTER 2020-02-08 07:57 | Outpatient (CLI) | payer MEDICAID | END 2020-02-08 07:58 | disposition home or self-care (01) | LOC: LAB 07:57 | PROVIDERS: ATTEND Obstetrics & Gynecology | DX: O99.810 Abnormal glucose complicating pregnancy (principal); Z3A.00 Weeks of gestation of pregnancy not specified | CPT/HCPCS: 36415; 82951; 82952 ==

== ENCOUNTER 2020-02-24 08:00 | Outpatient (CLI) | payer MEDICAID ==
[2020-02-24 13:27] LABS: HGB - HEMOGLOBIN 10.2 g/dL (12.0-16.0); MEAN CORPUSCULAR HEMOGLOBIN 28.7 pg (27.0-31.0); MEAN CORPUSCULAR HGB CONC 32.8 g/dL (32.0-36.0); MEAN CORPUSCULAR VOLUME 87.4 fL (81.0-99.0); RED BLOOD COUNT 3.56 10^6/uL (4.20-5.40); RED CELL DISTRIBUTION WIDTH 13.9 % (12.0-15.0); WHITE BLOOD COUNT 9.5 x10^3/uL (4.8-10.8)
== END 2020-02-24 23:59 | disposition home or self-care (01) ==
LOC: LAB.WCP 08:00
PROVIDERS: ATTEND Obstetrics & Gynecology
DX: O99.019 Anemia complicating pregnancy, unspecified trimester (principal); Z3A.00 Weeks of gestation of pregnancy not specified; D64.9 Anemia, unspecified
CPT/HCPCS: 36415; 85027

== ENCOUNTER 2020-02-28 07:00 | Outpatient (CLI) | payer MEDICAID ==
[2020-02-28 21:07] LABS: CANDIDA GROUP DNA NEGATIVE (NEGATIVE); CANDIDA KRUSEI DNA NEGATIVE (NEGATIVE); TRICHOMONAS VAGINALIS DNA NEGATIVE (NEGATIVE)
[2020-02-29 00:25] LABS: TRICHOMONAS VAGINALIS DNA UNRESOLVED (NEGATIVE)
== END 2020-02-28 23:59 | disposition home or self-care (01) ==
LOC: LAB.R 07:00
PROVIDERS: ATTEND Obstetrics & Gynecology
DX: O62.8 Other abnormalities of forces of labor (principal); Z3A.00 Weeks of gestation of pregnancy not specified
CPT/HCPCS: 82731; 87491; 87591; 87661; 87797; 87801

== ENCOUNTER 2020-02-28 12:19 | Outpatient (CLI) | payer MEDICAID ==
[2020-02-28] MEDS ORDERED: LACTATED RINGERS 1,000 ML IV ONE (13:01)
[2020-02-28] MEDS ORDERED: IRON DEXTRAN 200 MG in SODIUM CHLORIDE 0.9% 100ML 100 ML IV ONE (13:30)
[2020-02-28 15:45] VITALS: BP 96/57
== END 2020-02-28 15:00 | disposition home or self-care (01) ==
LOC: WFO 12:19 → FBP 12:45 → WFO 15:00
PROVIDERS: ATTEND Obstetrics & Gynecology
DX: O99.019 Anemia complicating pregnancy, unspecified trimester (principal); O62.8 Other abnormalities of forces of labor
CPT/HCPCS: 82731; 87481; 87491; 87591; 87661; 87797; 87801; 96365; J1750; J7120; 99214

== ENCOUNTER 2020-03-28 07:00 | Outpatient (CLI) | payer MEDICAID ==
[2020-03-29 21:34] LABS: TRICHOMONAS VAGINALIS DNA NEGATIVE (NEGATIVE)
== END 2020-03-28 23:59 | disposition home or self-care (01) ==
LOC: LAB.R 07:00
PROVIDERS: ATTEND Advanced Practice Midwife
DX: Z34.80 Encounter for supervision of other normal pregnancy, unspecified trimester (principal); Z36.85 Encounter for antenatal screening for Streptococcus B
CPT/HCPCS: 87491; 87591; 87661; 87797

== ENCOUNTER 2020-04-17 11:31 | Inpatient (IN) | payer MEDICAID ==
[2020-04-17 12:21] LABS: BASOPHILS % (AUTO) 0.3 %; EOSINOPHILS # (AUTO) 0.1 10^3/uL (0.0-0.7); EOSINOPHILS % (AUTO) 0.9 %; LYMPHOCYTES # (AUTO) 1.7 10^3/uL (1.5-3.5); LYMPHOCYTES % (AUTO) 14.2 %; MEAN CORPUSCULAR HEMOGLOBIN 27.5 pg (27.0-31.0); MEAN CORPUSCULAR HGB CONC 33.1 g/dL (32.0-36.0); MEAN PLATELET VOLUME 10.3 fL (7.9-10.8); MONOCYTES # (AUTO) 0.9 10^3/uL (0.0-1.0); MONOCYTES % (AUTO) 7.3 %; NEUTROPHILS % (AUTO) 76.6 %; PLT - PLATELET COUNT 193 10^3/uL (130-450); RED CELL DISTRIBUTION WIDTH 14.3 % (12.0-15.0); WHITE BLOOD COUNT 11.8 x10^3/uL (4.8-10.8)
[2020-04-17 12:32] LABS: RUPTURE OF MEMBRANES PLUS NEGATIVE (NEGATIVE)
[2020-04-17] MEDS ORDERED: fentaNYL 100 MCG/2 ML VIAL IVP PRN (12:42)
[2020-04-17] MEDS ORDERED: CARBOPROST TROMETHAMINE 250 MCG/ML AMP IM PRN (12:42)
[2020-04-17] MEDS ORDERED: CARBOPROST TROMETHAMINE 250 MCG/ML AMP IM ONE (12:42)
[2020-04-17] MEDS ORDERED: METHYLERGONOVINE 0.2 MG/ML VIAL IM ONE (12:42)
[2020-04-17] MEDS ORDERED: miSOPROStoL 200 MCG TABLET BC PRN (12:42)
[2020-04-17] MEDS ORDERED: OXYTOCIN/SODIUM CHLORIDE 500 ML IV PRN (12:42)
[2020-04-17] MEDS ORDERED: ONDANSETRON 4 MG/2 ML VIAL IVP PRN (12:42)
[2020-04-17] MEDS ORDERED: OXYTOCIN 10 UNIT/ML VIAL IM PRN (12:42)
[2020-04-17] MEDS ORDERED: SODIUM CHLORIDE FLUSH 0.9% 10 ML SYRINGE IVP PRN (12:42)
[2020-04-17] MEDS ORDERED: miSOPROStoL 200 MCG TABLET PR ONE (12:42)
[2020-04-17] MEDS ORDERED: TRANEXAMIC ACID 1,000 MG in SODIUM CHLORIDE 0.9% 100ML 100 ML IV PRN (12:42)
[2020-04-17] MEDS ORDERED: METOCLOPRAMIDE 10 MG/2 ML VIAL IVP PRN (12:42)
[2020-04-17] MEDS ORDERED: LIDOCAINE-MPF 1% 30 ML VIAL ID PRN (12:42)
[2020-04-17] MEDS ORDERED: METHYLERGONOVINE 0.2 MG/ML VIAL IM PRN (12:42)
[2020-04-17] MEDS ORDERED: TERBUTALINE 1 MG/ML VIAL SUBQ PRN (13:00)
[2020-04-17] MEDS ORDERED: OXYTOCIN/SODIUM CHLORIDE 500 ML IV SCH (13:00)
[2020-04-17] MEDS ORDERED: ACETAMINOPHEN 325 MG TABLET PO SCH (13:00)
[2020-04-17] MEDS: OXYTOCIN/SODIUM CHLORIDE 500 ML IV SCH (13:50)
[2020-04-17] MEDS: LACTATED RINGERS 1,000 ML IV SCH ×2 (13:50→20:14)
[2020-04-17] MEDS: SODIUM CHLORIDE FLUSH 0.9% 10 ML SYRINGE IVP SCH (13:52)
--- NOTE | 2020-04-17 15:55 | PREOP HISTORY & PHYSICAL ---
DATE OF SERVICE: 04/17/2020 Physician: Mina Faulkner MD IDENTIFICATION: The patient is a 25-year-old G2, P1 female whose EDC was 04/25/2020. CHIEF COMPLAINT: Fluid leak. HISTORY OF PRESENT ILLNESS: The patient states on Friday, she felt a pop, and after that she develop ed a clear vaginal fluid leakage. She did not seek any care for this. She presented to the clinic t jenn for a routine visit. At her visit, Dr. Solorio performed a glove, noted to be 2 cm, 50% efface d, -2, but the fluid was noted to be Nitrazine positive. For this reason, she was sent to labor and delivery for further evaluation. OBSTETRIC HISTORY: Positive for an abruption with her last requiring 2 units transfused. Infant weight 8 pounds 11 ounces at 37 weeks. The patient delivered vaginally. She states she had a very short second stage. The patient started her care at 11 weeks EGA. She had an ultrasound, which confirmed her due date. She has had her routine lab tests, which showed her to be a A negative. Rubella titer was equivocal. Her test for STIs were negative. The patient had a 50 gram Glucola. Fasting was 97. One hour was 1 18. Two hours were 104. Three hours were 137. She was discussed the issues about hyperglycemic t. PAST MEDICAL HISTORY: The patient was one time thought to be a thyroid, but was noted to be normal i n her thyroid labs. The patient is a former smoker. PAST SURGICAL HISTORY: None. ALLERGIES: 1. PENICILLIN. 2. IBUPROFEN. 3. SEASONAL. CURRENT MEDICATIONS: 1. Iron. 2. vitamins. HABITS: The patient denies any current use of alcohol or tobacco. She does do marijuana from time t o time. SOCIAL HISTORY: The patient is and lives with spouse. PHYSICAL EXAMINATION: GENERAL: Well-developed, well-nourished female who is mildly obese. VITAL SIGNS: On admission, her temperature was 37.5, heart rate 90, blood pressure 102/63, respirati ons 20, sat 99%. Repeat blood pressure showed her blood pressure to be 123/68, temperature 37.9. HEENT: Pupils are equal, round. Extraocular muscles intact. Mouth is clear. Mask is in place. HEART: Regular rate and rhythm without murmurs. LUNGS: Lung sharma are clear without rales or wheezes. ABDOMEN: Gravid. Fundal height is 40 cm. heart rate in the clinic is 143. The cervix is 2 c m, 50%, -2. ROM plus in labor and delivery was negative. LABORATORY DATA: White count is 11.8, hemoglobin 11.0, hematocrit 33.1, platelets 193. IMPRESSION: A 25-year-old G2, P1 female at 38.6 with possible rupture of membranes. She has a histo ry of having a delivery with abruption requiring transfusion. At this point, she is only showing deny e spotting. PLAN: Place the patient in labor and delivery and augment her labor. The patient is in agreement wi th this. We will place epidural when she becomes active. TD: 04/17/2020 15:13
--- NOTE | 2020-04-17 17:20 | PROVIDER PROGRESS NOTE ---
Labor Progress Note - Uterine Monitoring Contraction Frequency (min/apart): 2-5 Contraction Intensity: positive: Mild to moderate Uterine Resting Tone: positive: Soft - Monitoring Monitor Mode: positive: External ultrasound Heart Rate Baseline: 125 Heart Rate Variability: positive: Moderate (6-25 bmp) Accelerations: positive: Present, 15x15 Decelerations: positive: Early (few) Strip Review: positive: Category I - Vaginal Exam Dilation (in cm): 3 Effacement (%): 50 Station: -2 Cervical Position: Midposition - Labor Progress Note Labor Progress Note/Additional Text: bag with fluid felt. continue pitocin.
--- NOTE | 2020-04-17 21:50 | PROVIDER PROGRESS NOTE ---
Labor Progress Note - Uterine Monitoring Contraction Frequency (min/apart): absent Uterine Resting Tone: positive: Soft - Monitoring Heart Rate Baseline: 135-140 Heart Rate Variability: positive: Moderate (6-25 bmp) Accelerations: positive: Present, 15x15 Strip Review: positive: Category I - Vaginal Exam Dilation (in cm): 3 Effacement (%): 50 Station: -2 Cervical Position: Midposition - Labor Progress Note Labor Progress Note/Additional Text: Cervix is not progressing. Pit stopped misprotal.
[2020-04-17] MEDS: miSOPROStoL 100 MCG TABLET BC SCH (22:25)
[2020-04-18] MEDS: miSOPROStoL 100 MCG TABLET BC SCH (03:24)
[2020-04-18] MEDS: LACTATED RINGERS 1,000 ML IV SCH ×2 (07:05→16:59)
--- NOTE | 2020-04-18 08:33 | ANESTHESIA ---
Pre-Anesthesia VS, & Labs - Diagnosis gravid uterus, labor induction - Procedure labor epidural Vital Signs: Temp Pulse Resp BP Pulse Ox 37.1 C 93 20 123/68 99 04/17/20 13:12 04/17/20 13:12 04/17/20 13:12 04/17/20 13:12 04/17/20 11:43 Height 5 ft 3.5 in Weight (kg) 112.037 kg Body Mass Index 37.2 - NPO Other - Is Patient ?: Yes - Lab Results Current Lab Results: Laboratory Tests 04/17/20 11:54: WBC 11.8 H, RBC 4.00 L, Hgb 11.0 L, Hct 33.2 L, MCV 83.0, MCH 27.5, MCHC 33.1, RDW 14.3, Plt Count 193, MPV 10.3, Neut # (Auto) 9.0 H, Lymph # (Auto) 1.7, [place] # (Auto) 0.9, Eos # (Auto) 0.1, Baso # (Auto) 0.0, Absolute Nucleated RBC 0.00, Nucleated RBC % 0.0 Lab results reviewed: Yes Fish Bones: 04/17/20 11:54 Home Medications and Allergies Active Medications Acetaminophen (Tylenol) 650 mg PO Q6H JOE Carboprost Tromethamine (Hemabate) 250 mcg IM Q15M PRN PRN Reason: Step 4: Hemorrhage protocol Stop: 04/19/20 12:44 Fentanyl (Fentanyl) 50 mcg IVP Q1H PRN PRN Reason: PAIN Lactated Ringer's (Lr) 1,000 mls @ 150 mls/hr IV .Q6H40M [facility] Last Admin: 04/18/20 07:05 Dose: 150 mls/hr Documented by: Oxytocin/Sodium Chloride (Pitocin/Sodium Chloride) 500 mls @ 999 mls/hr IV PRN PRN; Protocol PRN Reason: POST- HEMORR PREVENTION Stop: 04/19/20 12:44 Tranexamic Acid 1,000 mg/ (Sodium Chloride) 110 mls @ 660 mls/hr IV ONCE PRN PRN Reason: EBL >1200mL and within 3hr Stop: 04/19/20 12:44 Oxytocin/Sodium Chloride (Pitocin/Sodium Chloride) 500 mls @ 1 mls/hr IV TITR JOE; Protocol Last Titration: 04/17/20 19:00 Dose: 7 milliunit/min, 7 mls/hr Documented by: Lidocaine HCl (Xylocaine-Mpf 1% Vial) 30 ml ID ONCE PRN PRN Reason: PERINEAL REPAIR Stop: 04/18/20 12:48 Methylergonovine Maleate (Methergine Inj) 0.2 mg IM ONCE PRN PRN Reason: Step 2: Hemorrhage protocol Stop: 04/19/20 12:44 Metoclopramide HCl (Reglan Inj) 10 mg IVP Q6H PRN PRN Reason: Nausea / Vomiting Misoprostol (Cytotec) 800 mcg BC ONCE PRN PRN Reason: Step 3: Hemorrhage protocol Stop: 04/19/20 12:44 Misoprostol (Cytotec) 50 mcg BC Q4H [facility] Last Admin: 04/18/20 03:24 Dose: 50 mcg Documented by: Ondansetron HCl (Zofran Inj) 4 mg IVP Q4H PRN PRN Reason: Nausea / Vomiting Oxytocin (Pitocin) 10 unit IM ONCE PRN PRN Reason: Step one: If no IV access Stop: 04/19/20 12:44 Sodium Chloride (Normal Saline Flush 0.9%) 10 ml IVP PRN PRN PRN Reason: NEEDED PER PROVIDER ORDERS Sodium Chloride (Normal Saline Flush 0.9%) 10 ml IVP 0100,0900,1700 [facility] Last Admin: 04/17/20 13:52 Dose: 10 ml Documented by: Terbutaline Sulfate (Terbutaline) 0.25 mg SUBQ Q1H PRN PRN Reason: uterine tachysytole Duloxetine HCl [Cymbalta] 120 mg PO DAILY 03/01/16 Omeprazole [PriLOSEC] 20 mg PO QDAC 08/12/17 SUMAtriptan [Imitrex] 25 mg PO DAILY PRN 08/15/17 Allergies/Adverse Reactions: Allergies Allergy/AdvReac Type Severity Reaction Status Date / Time Penicillins Allergy Unknown Unknown Verified 04/10/19 15:38 NSAIDS (Non-Steroidal AdvReac Mild Cramps Verified 04/10/19 15:38 Anti-Inflamma Anes History & Medical History - Anesthetic History Anesthesia Complications: reports: No previous complications Family history of Anesthesia Complications: Denies Family history of Malignant Hyperthermia: Denies - Medical History Cardiovascular: reports: None Pulmonary: reports: None Gastrointestinal: reports: GI bleed, Ulcers Urinary: reports: None Neuro: reports: Migraines Musculoskeletal: reports: None Endocrine/Autoimmune: reports: None, Other (morbid obesity) Blood Disorders: reports: Anemia Skin: reports: None Smoking Status: Former smoker - Surgical History General: Cholecystectomy Gynecologic: Other (partial abruption with last delivery, required transfusion of 2u PRBC) Exam General: Alert, Oriented x3, Cooperative Dental: WNL Mouth Opening: Greater than 4 Fingerbreadths Neck Mobility: Normal Mallampati classification: II Thyromental Distance: 4-6 cm Respiratory: Lungs clear Cardiovascular: Regular rate Plan Anesthesia Type: Epidural Consent for Procedure(s) Verified and Reviewed: Yes Code Status: Attempt Resuscitation ASA classification: 3-Severe systemic disease Is this case an emergency?: No
[2020-04-18] MEDS: OXYTOCIN/SODIUM CHLORIDE 500 ML IV SCH (13:22)
[2020-04-18] MEDS ORDERED: ROPIVACAINE 0.2% 200 MG/100 ML BAG EP ONE ×2 (16:37→20:23)
[2020-04-18] MEDS ORDERED: ROPIVACAINE 0.2% PF 20ML VIAL ONE (16:38)
[2020-04-18] MEDS ORDERED: diphenhydrAMINE INJ 50 MG/ML VIAL IVP PRN (17:15)
[2020-04-18] MEDS ORDERED: ONDANSETRON 4 MG/2 ML VIAL IVP PRN (17:15)
[2020-04-18] MEDS ORDERED: ROPIVACAINE 0.2% 200 MG/100 ML BAG EP PRN (17:15)
[2020-04-18] MEDS ORDERED: METOCLOPRAMIDE 10 MG/2 ML VIAL IVP PRN (17:15)
[2020-04-18] MEDS ORDERED: LACTATED RINGERS 500 ML IV ONE (17:15)
[2020-04-18] MEDS ORDERED: NALBUPHINE 10 MG/ML AMP IVP PRN (17:15)
[2020-04-18] MEDS ORDERED: ePHEDrine 50 MG/ML VIAL IVP PRN (17:15)
[2020-04-18] MEDS ORDERED: NALOXONE 0.4 MG/ML VIAL IVP PRN (17:15)
--- NOTE | 2020-04-18 17:16 | PROVIDER PROGRESS NOTE ---
Labor Progress Note - Uterine Monitoring Contraction Frequency (min/apart): intermittent Contraction Intensity: positive: Mild Other Uterine Monitoring: Pitocin had been turned off and contractions had petered out. Pitocin increased to 6 mU/min No leakage of fluids 155 mod anoop 15x15 accels no decels TOCO: irregular SVE was / - Monitoring Heart Rate Baseline: 155 Heart Rate Variability: positive: Moderate (6-25 bmp) Accelerations: positive: Present, 15x15 Decelerations: positive: None Strip Review: positive: Category I - Vaginal Exam Dilation (in cm): 3 Effacement (%): 80 Station: -2 Cervical Position: Midposition - Labor Progress Note Labor Progress Note/Additional Text: NO clear evidence of rupture based on ROM+ and no further leakage of fluid Cont with pitocin induction Cat I tracing Anticipate
[2020-04-18] MEDS ORDERED: fentaNYL 100 MCG/2 ML VIAL ONE (17:36)
[2020-04-18] MEDS: SODIUM CHLORIDE FLUSH 0.9% 10 ML SYRINGE IVP SCH (19:55)
--- NOTE | 2020-04-18 21:25 | ANESTHESIA PROCEDURE NOTE ---
Anesthesia Epidural Template - Patient Report Patient Reports: positive: Inadequate control - Other Comments Other Comments: Called to OB for inadequate pain control with existing labor epidural. Pt reports pain 9-10/10 with contractions. Discussed the low chances of success ut ilizing the same catheter that was placed just a few hours before and dosed twice by the previous provider. Patient agrees to allow me to replace the epidural. Existing catheter removed from L3-4, tip intact. New epidural placed at L2-3 without difficulty. Betadine scrub x3, lido 1% 3mL for local infiltration. SHARMAINE with air with needle hubbed. catheter threaded to 15cm depth (5cm in space). Test dose negative. Catheter secured. New catheter dosed with ropivicaine 2% 10mL and infusion pump set for 10mL bolus of same Q50'. Pt reports significantly improved comfort with contractions following loading dose.
[2020-04-18] MEDS ORDERED: LIDOCAINE 1%-EPI 1:100000 30 ML MDV ONE (21:33)
--- NOTE | 2020-04-18 22:47 | PROVIDER PROGRESS NOTE ---
Subjective - Prog Note Date Prog Note Date: 04/18/20 Prog Note Time: 17:46 - Subjective Subjective: Patient is uncomfortable despite epidural placement. 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 SVE /-2 at 17:19 per RN Pitocin at 6 mU/min EFM 140 mod anoop 1 accel no decel TOCO Q2-3 Cat I tracing Will delay AROM until patient comfortable Cont with pitocin induction Objective - Vital Signs/Intake & Output Intake & Output: Intake & Output 04/15/20 04/16/20 04/17/20 04/18/20 23:59 23:59 23:59 23:59 Intake Total 788.838 6349.716 Output Total 1200 Balance 978.984 948.716 - Lab Results Fish Bones: 04/17/20 11:54
--- NOTE | 2020-04-18 23:20 | PROVIDER PROGRESS NOTE ---
Subjective - Prog Note Date Prog Note Date: 04/18/20 Prog Note Time: 22:59 - Subjective Subjective: Patient now more comfortable with replaced epidural SVE 4-/-2 AROM for blood tinged fluid; no meconium EFM 145 mod anoop 15x15 accels no decels TOCO; Q2-3 min Pitocin at 9 mU/min Cat I tracing Cont with pitocin induction Anticipate Objective - Vital Signs/Intake & Output Intake & Output: Intake & Output 04/15/20 04/16/20 04/17/20 04/18/20 23:59 23:59 23:59 23:59 Intake Total 592.210 5245.716 Output Total 1200 Balance 978.984 948.716 - Lab Results Fish Bones: 04/17/20 11:54
[2020-04-19] MEDS ORDERED: ONDANSETRON ODT 4 MG TABLET TL PRN (00:09)
[2020-04-19] MEDS ORDERED: LIDOCAINE 1% 2 ML VIAL SUBQ ONE (00:12)
--- NOTE | 2020-04-19 00:28 | DELIVERY NOTE ---
Delivery Note - Labor Labor: positive: Augmented by oxytocin, Induced by oxytocin - Delivery Method Delivery Method: positive: Spontaneous vaginal delivery - Cervical Ripening Method Cervical Ripening Method: positive: Misoprostil, Oxytocin - Presentation Presentation: positive: Vertex - Nuchal Cord Nuchal Cord: positive: None - Anesthetic Anesthetic Type: - Amniotic Fluid Description Amniotic Fluid Description: positive: Clear, Bloody - Episiotomy Type Episiotomy Type: positive: None - Laceration Laceration: positive: 1st degree - Suture Suture Type: positive: Vicryl Suture Size: positive: 3-0 - Delivery Outcome Delivery Outcome: positive: Livebirth - : positive: Placed in direct skin contact with mother, Stimulated, Warmed sex: positive: Female - Cord Cord: positive: 3 vessels - Placenta Placenta: positive: Intact, Expressed - Estimated Blood Loss Estimated Blood Loss (in cc): 150 - Post Delivery Events Post Delivery Events: positive: No post delivery events - Delivery Comments (Free Text/Narrative) Delivery Comments (Free Text/Narrative): STAGE I: Patient is a 25 yo admitted from clinic at 38 weeks and 6 days on 04/17/2020. In clinic she reported that several days earlier (04/14/2020) she had felt a popping sensation followed with a gush of fluid. On vaginal exam she was 2 cm dilated and had nitrazine positive vaginal fluid. She was sent to labor and delivery for further evaluation. ROM+ was negative but given her clinical scenario and her history of precipitous delivery, she was admitted for induction of labor. Augmentation/cervical ripening. She received Pitocin for she failed to progress beyond 3 cm and was then given misoprostol 50 mcg BC x2. She was then started on Pitocin again reaching a max dose of 9 milliunits/min. She is GBS negative and antibiotic prophylaxis was not indicated. She had an epidural for pain management. She underwent On 04/17/2020Artificial rupture of membranes at 22:55. She was approximately 4.5 cm dilated at that time. Fluid was clear of meconium and blood-tinged rupture. She progressed rapidly to complete by 2330. Category 1 tracing throughout stage I. STAGE II: Patient pushed well and delivered infant forcefully with a single push at 23:33. was delivered too quickly to assess head position or delineate shoulder positions. No nuchal cord. Infant was delivered to maternal abdomen. Cord clamped x2 and cut once pulsations had ceased. Apgars were 9/9, weight pending. STAGE III: Placenta delivered via expression at 23:59. It was examined and found to be intact. Perineum was examined and a small midline first-degree laceration was noted. Patient received local anesthetic with 1% lidocaine. Laceration was repaired with 3-0 Vicryl in the usual sterile fashion. Good hemostasis was noted total EBL was 150 mL.
[2020-04-19] MEDS ORDERED: LACTATED RINGERS 1,000 ML IV SCH (01:00)
[2020-04-19] MEDS: ACETAMINOPHEN 500 MG TABLET PO SCH ×3 (01:07→17:00)
[2020-04-19] MEDS: DOCUSATE SODIUM 100 MG CAPSULE PO PRN ×2 (08:55→20:13)
[2020-04-19] MEDS: IBUPROFEN 600 MG TABLET PO SCH ×4 (12:12→22:21)
--- NOTE | 2020-04-19 17:05 | PROVIDER PROGRESS NOTE ---
Subjective - Prog Note Date Prog Note Date: 04/19/20 Prog Note Time: 15:00 - Subjective Pt reports feeling: Improved Subjective: Patient is up and ambulating, tolerating po, and voiding. Pain is well managed with pain medications. Objective - Vital Signs/Intake & Output Reviewed Vital Signs: Yes Intake & Output: Intake & Output 04/16/20 04/17/20 04/18/20 04/19/20 23:59 23:59 23:59 23:59 Intake Total 215.335 6982.716 479.617 Output Total 1300 400 Balance 301.019 7339.716 79.617 - Objective General Appearance: positive: No acute distress Eyes Bilateral: positive: Normal inspection Neck: positive: Nml inspection Respiratory: positive: No respiratory distress, Breath sounds nml Cardiovascular: positive: Other (RR) Abdomen: positive: Non-tender, Other (FF below umbi) Rectal: positive: Non-tender Back: positive: Nml inspection Skin: positive: Color nml Extremities: positive: Non-tender, No pedal edema Neurologic/Psychiatric: positive: Oriented x3 - Lab Results Fish Bones: 04/17/20 11:54 Assessment/Plan - Problem List (1) Vaginal delivery Impression: PPD#1 s/p Delivered at 23:33 on 04/18/2020 Doing well Routine pp care Rh negative; also Rh negative. Anticipate DC home tomorrow
[2020-04-19] MEDS ORDERED: oxyCODONE 5 MG TABLET PO ONE (20:09)
[2020-04-19] MEDS: SIMETHICONE CHEW 80 MG TABLET PO PRN (20:13)
[2020-04-20] MEDS: ACETAMINOPHEN 500 MG TABLET PO SCH ×2 (00:40→08:50)
[2020-04-20] MEDS: IBUPROFEN 600 MG TABLET PO SCH (06:03)
[2020-04-20] MEDS: SIMETHICONE CHEW 80 MG TABLET PO PRN (08:50)
[2020-04-20] MEDS: DOCUSATE SODIUM 100 MG CAPSULE PO PRN (08:50)
--- NOTE | 2020-04-20 09:21 | PROVIDER PROGRESS NOTE ---
Subjective - Prog Note Date Prog Note Date: 04/20/20 Prog Note Time: 09:19 - Subjective Subjective: Patient is up and ambulating, tolerating po, and voiding. Pain is well managed with pain medications. Having some issues with BF. Objective - Vital Signs/Intake & Output Reviewed Vital Signs: Yes Vital Signs: Vital Signs x48h Temp Pulse Resp BP Pulse Ox 04/20/20 02:00 98.2 F 66 16 115/70 99 Intake & Output: Intake & Output 04/17/20 04/18/20 04/19/20 04/20/20 23:59 23:59 23:59 23:59 Intake Total 421.367 4565.716 479.617 Output Total 1300 400 Balance 938.686 6732.716 79.617 - Objective General Appearance: positive: No acute distress Respiratory: positive: No respiratory distress Cardiovascular: positive: Other (RR) Abdomen: positive: Non-tender, Other (FF below umbi) Back: positive: Nml inspection Skin: positive: Color nml Extremities: positive: Non-tender, No pedal edema Neurologic/Psychiatric: positive: Oriented x3 - Lab Results Fish Bones: 04/17/20 11:54 Assessment/Plan - Problem List (1) Vaginal delivery Impression: PPD#2 s/p at 23:30 on 04/18/2020 Doing well Meeting goals for discharge Having some issues with BF. OK to DC to boarding if baby is not discharged Routine DC instructions given DC to home vs boarding
--- NOTE | 2020-04-20 09:23 | Discharge Plan ---
Discharge Plan Problem Reviewed?: Yes Disposition: Home, Self Care Condition: Good Diet: Regular Activity Restrictions: Additional Comments (Nothing in the vagina for 6 weeks: No intercourse, tampons, douching Call for: -Fever greater than 100.5 - Pain that does not improve with pain medication -Heavy bleeding in which you are soaking a pad an hour for 2 hours in a row) Shower Restrictions: No Additional Instructions or Follow Up instructions: Ibuprofen 600 mg by mouth every 6 hours as needed for pain Acetaminophen 500-1000 mg by mouth every 8 hours as needed for pain Docusate 100-200 mg by mouth twice a day as needed for constipation No Smoking: If you smoke, Please STOP! Call for help. Follow-up with: Rachell Solorio MD [Provider Admit Priv/Credential] -
[2020-04-20 12:02] VITALS: BP 112/64
[2020-04-20] MEDS ORDERED: MEASLES,MUMPS & RUBELLA VACC 0.5 ML VIAL SUBQ ONE (14:30)
--- NOTE | 2020-04-20 15:50 | Labor Flowsheet ---
Labor Flowsheet Datetime Report Generated by CPN: 04/20/2020 15:50 Datetime: 04/20/2020 08:59 VITAL SIGNS NBP Sys/Fariba/Mean (mmHg): 110 : 66 : 75 Pulse: 76 LaborFlag: Labor Datetime: 04/19/2020 02:35 SpO2 (%): 98 Datetime: 04/18/2020 23:39 Stage 2 Comments: intact placenta delivered spontaneously. Routine discard Datetime: 04/18/2020 23:31 STAGE 2 Pushing: Urge to Push Pushing Position: Pushing with Contractions; Pushing Lithotomy Pushing Progress: Descent with Pushing; with Pushing; Pushing Effectively with Contraction s Datetime: 04/18/2020 23:30 UTERINE ACTIVITY Monitor Mode: External Frequency (min): 2-3 Quality: Strong Duration (sec): 60-100 Pattern: Normal: <= 5 Contractions in 10 Minutes Resting Tone (Palpate): Relaxed Pitocin Checklist: At Least 1 Acceleration of 15 bpm x 15 Seconds in 30 Minutes or Adequate Variabi lity; No More than 1 Late Deceleration Occurred in Past 30 Minutes; No More than 2 Variable Decelerat ions > 60 Seconds in Duration and decreasing >60 bpm in 30 minutes; No More than 5 Uterine Contractio ns in 10 Minutes for any 20 Minute Interval; Uterus Palpates Soft between Contractions ASSESSMENT A Monitor Mode: External US FHR Baseline Rate : 135 Variability: Moderate 6-25 bpm Accelerations: 15X15 Decelerations: None Category: Category I VAGINAL EXAM Dilatation (cm): 10.0 Oxygen Method: Room Air Datetime: 04/18/2020 23:27 COMMUNICATION Communication: Provider at Bedside Provider Notified (Name): McSorley Datetime: 04/18/2020 23:19 Effacement (%): 100 Station: 0 Exam by: Patrick Peck RN Vaginal Bleeding: Normal Show Cervix, Consistency: Soft Datetime: 04/18/2020 23:14 Patient Position/Activity: Left Lateral Datetime: 04/18/2020 23:06 Antiemetics/Antacids: Zofran (mg) @ 4 Datetime: 04/18/2020 22:55 Membrane Status: Ruptured Membranes Rupture Method: Artificial Amniotic Fluid Color: Clear Amniotic Fluid Amount: Small Membrane Comments: blood tinged Vaginal Exam Comments: 4-5 Datetime: 04/18/2020 22:52 Temperature (C): 37.3 Datetime: 04/18/2020 22:22 MEDICATIONS Pitocin (milliunits): Increased to @ 9 Datetime: 04/18/2020 22:05 Patient Care Comments: 600ml UO Datetime: 04/18/2020 21:56 I/O Interventions: Laureano Cath Inserted Datetime: 04/18/2020 21:30 Comments: periods of minimal variability starting around 2114 Datetime: 04/18/2020 21:16 PAIN Pain Scale: 7 Pain Coping: Breathing Through Contractions Datetime: 04/18/2020 21:06 Epidural Procedure Other: Single Dose Datetime: 04/18/2020 20:57 Pain Assessment Comments: "much better" Datetime: 04/18/2020 20:50 Pain Presence: Intermittent Pain Type: Contraction Pain Location: Abdomen Pain Relief Measures: Epidural Given Datetime: 04/18/2020 20:37 Epidural Procedure: Test Dose Datetime: 04/18/2020 20:20 Anesthesia Comments: 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 Adjusted toco multiple ti mes Datetime: 04/18/2020 19:58 Analgesics/Sedatives: Fentanyl (mcg) @ 50 Datetime: 04/18/2020 19:46 Communication Comments: called provider to discuss giving Fentanyl on top of epidural which is not providing pain relief at this time. Datetime: 04/18/2020 19:21 Respirations: 16 Vital Sign Comments: numbness/tingling R thigh MATERNAL ASSESSMENT Level of Consciousness: Alert Headache: Denies Breath Sounds, Left: Clear and Equal Breath Sounds, Right: Clear and Equal Nausea/Vomiting: Denies RUQ Epigastric Pain: Denies Datetime: 04/18/2020 16:39 PROCEDURE TIME OUT Procedure Type: epidural Procedure Verify: Correct Patient Identity; Correct Side and Site are Marked; Accurate Procedure Co nsent Form; Agreement on Procedure to be Done; Correct Patient Position; Relevant Images and Results are Properly Labeled and Displayed; Addressed Need to Administer Antibiotics or Fluids for Irrigation ; Safety Precautions Based on Patient History or Medication Use ANESTHESIA Anesthesia Plans: Epidural Epidural Positioning: Sitting Datetime: 04/18/2020 16:09 Comfort Measures: Anesthesia Notified Datetime: 04/18/2020 06:52 Stage of : Labor Temperature Route: Oral Datetime: 04/18/2020 06:00 Monitor Interventions for FHR: Ultrasound Adjusted Datetime: 04/18/2020 03:24 Cervical Ripening Agents: Cytotec @ Datetime: 04/18/2020 03:00 FHR Baseline Changes: No Baseline Change Datetime: 04/17/2020 19:10 Nurse Giving Report: H [place] RN Nurse Receiving Report: H Mahala RN Datetime: 04/17/2020 13:50 PATIENT CARE IV/Blood Work: New IV Bag Hung; IV Bag Number @ 1 Datetime: 04/17/2020 13:31 Membranes Ruptured Date/Time: 04/14/2020 02:30 Amniotic Fluid Odor: Normal Datetime: 04/17/2020 13:04 Notification Reason: Status Update; Status; Uterine Activity; Pain; Maternal Vital Sign Pierce e; Lab/Diagnostic Study
--- NOTE | 2020-04-27 05:47 | DISCHARGE SUMMARY ---
"Discharge Summary Admit Date: 04/17/20 Discharge Date: 04/20/20 Discharging Provider: Lyndsey Code Status: Attempt Resuscitation Condition at Discharge: Good Discharge Disposition: 01 Home, Self Care Discharge Facility Name: [facility] - DIAGNOSES Admission Diagnoses: IUP at 38+6 wga Unclear membrane status History of rapid vs precipitous delivery Rh negative - HPI History of Present Illness: Patient is a 25 yo admitted from clinic at 38 weeks and 6 days on 04/17/2020. In clinic she reported that several days earlier (04/14/2020) she had felt a popping sensation followed with a gush of fluid. On vaginal exam she was 2 cm dilated and had nitrazine positive vaginal fluid. She was sent to labor and delivery for further evaluation. ROM+ was negative but given her clinical scenario and her history of precipitous delivery, she was admitted for induction of labor. augmentation/cervical ripening. - CONSULTS | PROCEDURES Consultations: Anesthesia Procedures: Spontaneous vaginal delivery - HOSPITAL COURSE Hospital Course: Patient is a 25 yo admitted from clinic at 38 weeks and 6 days on 04/17/2020. In clinic she reported that several days earlier (04/14/2020) she had felt a popping sensation followed with a gush of fluid. On vaginal exam she was 2 cm dilated and had nitrazine positive vaginal fluid. She was sent to labor and delivery for further evaluation. ROM+ was negative but given her clinical scenario and her history of precipitous delivery, she was admitted for induction of labor. augmentation/cervical ripening. She received Pitocin for she failed to progress beyond 3 cm and was then given misoprostol 50 mcg BC x2. She was then started on Pitocin again reaching a max dose of 9 milliunits/min. She is GBS negative and antibiotic prophylaxis was not indicated. She had an epidural for pain management. She underwent On 04/17/2020. Artificial rupture of membranes at 22:55. She was approximately 4.5 cm dilated at that time. Fluid was clear of meconium and blood-tinged rupture. She progressed rapidly to complete by 2330. Category 1 tracing throughout stage I. STAGE II: Patient pushed well and delivered infant forcefully with a single push at 23:33. was delivered too quickly to assess head position or delineate shoulder positions. No nuchal cord. was delivered to maternal abdomen. Cord clamped x2 and cut once pulsations had ceased. Apgars were 9/9, weight pending. STAGE III: Placenta delivered via expression at 23:59. It was examined and found to be intact. Perineum was examined and a small midline first-degree laceration was noted. Patient received local anesthetic with 1% lidocaine. Laceration was repaired with 3-0 Vicryl in the usual sterile fashion. Good hemostasis was noted total EBL was 150 mL course was uncomplicated. Rh negative; also Rh negative. - ALLERGIES Allergies/Adverse Reactions: Allergies Allergy/AdvReac Type Severity Reaction Status Date / Time Penicillins Allergy Unknown Unknown Verified 04/10/19 15:38 NSAIDS (Non-Steroidal AdvReac Mild Cramps Verified 04/10/19 15:38 Anti-Inflamma - MEDICATIONS Home Medications: Ambulatory Orders Medication Instructions Recorded Confirmed Ferrous Sulfate 325 mg PO DAILY #20 tablet 06/12/16 08/14/17 Acetaminophen 500 - 1,000 mg PO Q8HR 04/20/20 04/20/20 Docusate Sodium 250Mg Capsule BID 04/20/20 [Colace 250Mg Capsule] Ibuprofen [Ibu] 600 mg PO Q6HR 04/20/20 04/20/20 - LABS Result Diagrams: 04/17/20 11:54 - FOLLOW UP Follow Up: 6 weeks for routine care - TIME SPENT Time Spent in Discharge (Minutes): 30"
== END 2020-04-20 14:00 | disposition home or self-care (01) | DRG 807 ==
LOC: WFO 11:31 → FBP 11:33 → WFO 12:42
PROVIDERS: ADMIT Obstetrics & Gynecology; ATTEND Obstetrics & Gynecology
PROC: 10E0XZZ Delivery of Products of Conception, External Approach (ICD-10-PCS; principal; 2020-04-18)
PROC: 0HQ9XZZ Repair Perineum Skin, External Approach (ICD-10-PCS; 2020-04-18)
PROC: 10907ZC Drainage of Amniotic Fluid, Therapeutic from Products of Conception, Via Natural or Artificial Opening (ICD-10-PCS; 2020-04-18)
DX: O99.214 Obesity complicating childbirth (principal); Z37.0 Single live birth; E66.9 Obesity, unspecified; O70.0 First degree perineal laceration during delivery; Z3A.39 39 weeks gestation of pregnancy; Z87.891 Personal history of nicotine dependence; Z87.59 Personal history of other complications of pregnancy, childbirth and the puerperium
CPT/HCPCS: 84112; 85025; 99213; A9270; J2795; J7120

== ENCOUNTER 2024-04-27 12:39 | Outpatient (CLI) | payer MEDICAID ==
[2024-04-27 17:54] LABS: BASOPHILS % (AUTO) 0.3 %; EOSINOPHILS # (AUTO) 0.2 10^3/uL (0.0-0.7); EOSINOPHILS % (AUTO) 2.7 %; HCT - HEMATOCRIT 42.1 % (37.0-47.0); HGB - HEMOGLOBIN 13.7 g/dL (12.0-16.0); LYMPHOCYTES # (AUTO) 1.9 10^3/uL (1.5-3.5); LYMPHOCYTES % (AUTO) 28.2 %; MEAN CORPUSCULAR HEMOGLOBIN 27.8 pg (27.0-31.0); MEAN CORPUSCULAR HGB CONC 32.5 g/dL (32.0-36.0); MEAN CORPUSCULAR VOLUME 85.6 fL (81.0-99.0); MEAN PLATELET VOLUME 10.6 fL (7.9-10.8); MONOCYTES # (AUTO) 0.4 10^3/uL (0.0-1.0); MONOCYTES % (AUTO) 6.3 %; NEUTROPHILS # (AUTO) 4.1 10^3/uL (1.5-6.6); NEUTROPHILS % (AUTO) 62.2 %; PLT - PLATELET COUNT 234 10^3/uL (130-450); RED BLOOD COUNT 4.92 10^6/uL (4.20-5.40); RED CELL DISTRIBUTION WIDTH 13.9 % (12.0-15.0); WHITE BLOOD COUNT 6.6 x10^3/uL (4.8-10.8)
[2024-04-27 18:15] LABS: ALBUMIN 4.4 g/dL (3.2-5.5); ALBUMIN/GLOBULIN RATIO 1.6 (1.0-2.2); ALKALINE PHOSPHATASE 73 IU/L (42-121); ALT ALANINE AMINOTRANSFERASE 29 IU/L (10-60); AST ASPARTATE AMINOTRANSFERASE 18 IU/L (10-42); BILIRUBIN,TOTAL 0.4 mg/dL (0.2-1.0); BUN - BLOOD UREA NITROGEN 14 mg/dL (6-20); CALCIUM 9.8 mg/dL (8.5-10.3); CARBON DIOXIDE - CO2 27 mmol/L (21-32); CHLORIDE 106 mmol/L (101-111); CHOL/HDL RATIO 4.3 (<4.4); CHOLESTEROL 230 mg/dL; CREATININE 0.7 mg/dL (0.6-1.3); GFR - MDRD 98 (>89); GLUCOSE 108 mg/dL (74-104); HDL CHOLESTEROL 54 mg/dL; LDL CHOLESTEROL,CALCULATED 145 mg/dL; LDL/HDL RATIO 2.7 (<4.4); POTASSIUM 4.3 mmol/L (3.5-4.5); SODIUM 138 mmol/L (135-145); TOTAL PROTEIN 7.2 g/dL (6.4-8.9); TRIGLYCERIDES 157 mg/dL; VLDL CHOLESTEROL 31 mg/dL
[2024-04-27 18:21] LABS: THYROID STIMULATING HORMONE 1.77 uIU/mL (0.34-5.60)
== END 2024-04-27 12:40 | disposition home or self-care (01) ==
LOC: LAB.N 12:39
PROVIDERS: ATTEND Nurse Practitioner
DX: E78.5 Hyperlipidemia, unspecified (principal); R53.83 Other fatigue; E66.01 Morbid (severe) obesity due to excess calories; F41.9 Anxiety disorder, unspecified; F32.A Depression, unspecified
CPT/HCPCS: 36415; 80053; 80061; 83721; 84443; 85025